=== PATIENT | male | born 1960 | race Caucasian/White ===

== ENCOUNTER → 2018-03-17 09:03 | Outpatient (CLI) | payer OTHER, SELFPAY ==
[2018-03-17 10:15] LABS: Absolute Lymphocyte Count 2.14 X10^3/ul (0.83-4.51); Absolute Neutrophil Count 4.3 X10^3/uL (2.0-7.7); Basophil# 0.04 X10^3/uL; Basophil% 0.6 % (0-1); Eosinophil# 0.34 X10^3/uL; Eosinophils% 4.7 % (0-5); Hematocrit 43.2 % (40-54); Hemoglobin 14.2 g/dl (13.0-16.5); Lymphocyte # 2.14 X10^3/ul (4.0); Lymphocyte % 29.8 % (19-41); Mean Corp Hgb Conc 32.9 g/gl (32-36); Mean Corpuscular Hgb 28.3 pg (27.0-32.0); Mean Corpuscular Volume 86.1 fL (80-94); Mean Platelet Vol. 11.2 fl (6.2-12.0); Monocyte# 0.36 X10^3/uL; Neutrophil % 59.8 % (47-70); Platelet Count 164 K/mm3 (150-450); RBC Distribution Width CV 12.9 % (11.6-14.6); RBC Distribution Width SD 40.7 fl (35.1-43.9); Red Blood Count 5.02 M/mm3 (4.6-6.2); White Blood Count 7.2 K/mm3 (4.4-11.0)
[2018-03-17 10:22] LABS: POSITIVE COUNT NO; POSITIVE DIFFERENTIAL NO; POSITIVE MORPHOLOGY NO
[2018-03-17 10:45] LABS: ALB/GLOB Ratio 0.9 RATIO (0.9-2.4); AST(SGOT) 26 U/L (15-37); Alanine Aminotransfer ALT/SGPT 39 U/L (16-61); Albumin, Serum 3.6 g/dL (3.2-5.0); Alkaline Phosphatase 56 U/L (45-117); Anion Gap 12 (5-15); BUN 14 mg/dL (7-18); BUN/Creat Ratio 15.7 RATIO (10-20); Calcium,Total 8.4 mg/dL (8.5-10.1); Chloride 106 mmol/L (98-107); Cholesterol 153 mg/dL (200); Creatinine, Serum 0.89 mg/dL (0.70-1.30); EST Glomerular Filtration Rate 92 mL/min (>60); Est Glom Filt Rate - Afr Amer 112 mL/min (>60); Globulin 3.8 g/dL (2.2-4.2); Glucose 169 mg/dL (74-106); High Density Lipoprotein 36 mg/dL; Potassium 3.6 mmol/L (3.5-5.1); Protein, Total 7.4 g/dL (6.4-8.2); Sodium Level 143 mmol/L (136-145); Triglycerides 202 mg/dL; Very Low Density Lipoprotein 40 mg/dL (5-40)
== END ==
PROVIDERS: Family Provider Family Medicine; PCP Family Medicine; Visit Provider Family Medicine
DX: I10 Essential (primary) hypertension (principal); E11.9 Type 2 diabetes mellitus without complications; R53.83 Other fatigue
CPT/HCPCS: 36415; 80053; 80061; 85025

== ENCOUNTER → 2018-10-05 16:56 | Outpatient (CLI) | payer OTHER, SELFPAY ==
[2018-03-10 17:13] VITALS: BMI 32.1
--- NOTE | 2018-10-05 16:58 | RAD_ITS ---
STUDY: X-RAY - CERVICAL SPINE REASON FOR EXAM: Male, 58 years old. Neck pain TECHNIQUE: view(s) of the cervical spine were obtained. COMPARISON: None FINDINGS: There is a normal lordotic curvature of the cervical spine with no acute fractures or dislocations bowel with degenerative changes at C4-C5, C5-C6 and C6-C7. These aren't demonstrated by small spurs from the vertebral body endplates and disc space narrowing. The prevertebral soft tissues are normal. Mild encroachment on the intervertebral foramina of C4-C5, C5-C6 on the right side are noted. RAD/Cerv Spine 4 or 5 Views IMPRESSION: Disc disease at C4-C5, C5-C6 and C6-C7 with uncinate spurs encroaching on the right intervertebral foramen at C4-5 and C5-6. No fracture Electronically Signed: Valentin Mora MD at 6:51 EST Tel , Service support ,
--- OUTSIDE RECORDS SUMMARY | 2019-01-07 09:36 | XMS RPT_ITS ---
:1960 Author Organization OHIP Care Team Providers Name Role Phone Malys, Ramona Attending Unavailable Malys, Ramona Referring Unavailable Malys, Ramona Primary Care Unavailable Malys, Ramona Attending Unavailable Malys, Ramona Referring Unavailable Malys, Ramona Primary Care Unavailable Malys, Ramona Attending Unavailable Malys, Ramona Primary Care Unavailable Malys, Ramona Referring Unavailable Denia Hurd FLIGHT DIRECTOR-C Attending Unavailable Malys, Ramona Referring Unavailable Malys, Ramona Primary Care Unavailable Denia Hurd FLIGHT DIRECTOR-C Attending Unavailable Malys, Ramona Referring Unavailable PROBLEMS PROBLEMS DATE TYPE CONDITION / CODE ATTENDING STATUS SOURCE 03/17/2018 Unknown E11.9 - Type 2 Ramona Kimbrough Active [facility] diabetes mellitus Community without Hospital complications / Repository E11.9(ICD-10) 03/17/2018 Unknown I10 - Essential Ramona Kimbrouhg Active [facility] (primary) Community hypertension / Hospital I10(ICD-10) Repository 03/17/2018 Unknown R53.83 - Other MalRamona hammonds Active [facility] fatigue / Community R53.83(ICD-10) Hospital Repository PROCEDURES PROCEDURES No Procedure Records FoundRESULTS RESULTS SPINE CERVICAL Observed: 11/03/2018 Status: F Source: [place] (ROUTINE) 10:10 AM [facility] REPOSITORY [facility] Imaging Services [address] [place] [address] Spine Cervical (Routine) MR#: [id number] Acct: [id number] Name: HILARY BUTT Rep #: [id number] : 1960 M 58 From: Donis Spencer MD PCP: Ramona Kimbrough DO Status: REG CLI Study: Spine Cervical (Routine) Date of Exam: 11/03/18 Exam# [id number] Ordering Dr: Ramona Kimbrough DO STUDY: MRI CERVICAL SPINE WITHOUT CONTRAST REASON FOR EXAM: Male, 58 years old. Radiculopathy, right arm numbness and neck pain TECHNIQUE: Standardized fat and water weighted pulse sequences were obtained in the sagittal and axial planes. COMPARISON: Radiographs 10/05/2018 FINDINGS: Normal foramen magnum and brainstem-cervical cord junction. Normal craniovertebral junction. Normal anterior atlantoaxial articulation. Normal odontoid process. Normal cervical lordosis. Normal vertebral bodies and posterior osseous elements. C2-3: Disc osteophyte complex with mild central canal stenosis. C3-4: Disc osteophyte complex with moderate central canal and severe left foraminal stenoses. C4-5: Disc osteophyte complex with severe central canal stenosis, mild cord compression, and severe bilateral foraminal stenoses. C5-6: Disc osteophyte complex with severe central canal stenosis, moderate cord compression, and severe right foraminal stenosis. C6-7: Disc osteophyte complex with moderate central canal stenosis and severe left and moderate right foraminal stenoses. C7-T1: Normal endplates. Normal disc height, signal and morphology. Normal central canal and intervertebral neural foramina. No intrinsic cord signal abnormalities are seen at this time. Normal visualized soft tissue structures. MRI/Spine Cervical (Routine) IMPRESSION: Multilevel degenerative disease as described. Severe central canal stenoses with cord compression at the C4-5 and C5-6 levels. No intrinsic cord signal abnormalities are seen at this time. Severe foraminal stenoses are present on the left at C3-4, bilaterally at C4-5, on the right at C5-6, and on the left at C6-7. Electronically Signed: Donis Spencer MD at 11:29 EST Tel , Service support , CC: Ramona Kimbrough DO Enrollment Management Coordinator: Signed CERV SPINE 4 OR 5 Observed: 10/05/2018 Status: F Source: [place] VIEWS 4:58 PM [facility] REPOSITORY [facility] Imaging Services [address] [place] [address] Cerv Spine 4 or 5 Views MR#: [id number] Acct: [id number] Name: HILARY BUTT Rep #: [id number] : 1960 58 From: Valentin Mora MD PCP: Ramona Kimbrough DO Status: REG CLI Study: Cerv Spine 4 or 5 Views Date of Exam: 10/05/18 Exam# [id number] Ordering Dr: Ramona Kimbrough DO STUDY: X-RAY - CERVICAL SPINE REASON FOR EXAM: Male, 58 years old. Neck pain TECHNIQUE: view(s) of the cervical spine were obtained. COMPARISON: None FINDINGS: There is a normal lordotic curvature of the cervical spine with no acute fractures or dislocations bowel with degenerative changes at C4-C5, C5-C6 and C6-C7. These aren't demonstrated by small spurs from the vertebral body endplates and disc space narrowing. The prevertebral soft tissues are normal. Mild encroachment on the intervertebral foramina of C4-C5, C5-C6 on the right side are noted. RAD/Cerv Spine 4 or 5 Views IMPRESSION: Disc disease at C4-C5, C5-C6 and C6-C7 with uncinate spurs encroaching on the right intervertebral foramen at C4-5 and C5-6. No fracture Electronically Signed: Valentin Mora MD at 6:51 EST Tel , Service support , CC: Ramona Kimbrough DO Enrollment Management Coordinator: Signed ENDOCRINOLOGY VISIT Observed: 04/25/2018 Status: F Source: [place] REPORT 2:16 PM [facility] REPOSITORY [facility] [address] [place] [address]. [address] [place] [address] OFFICE VISIT Date of Service: 03/10/18 MR#: [id number] Acct: [id number] Name: HILARY BUTT Rep #: [id number] : 1960 Provider: Denia Hurd NP Age/Sex: 57/M [place] [facility] [place] Status: Signed HPI History of present illness Hilary Butt is a 57 year old male who presents for consult of diabetes type 2. Diagnosed in 2000. He is currently on levemir 56 units in am and 52 units in pm. Also uses victoza 1,8 daily and is on metformin. His A1c is 180 not controlled. He reports he watches diet and is checking BG readings. Pt denies difficulty with injections or self monitoring of BG. Denies any signs of infection or irritation at site of injections. Reports taking insulin as directed At time of visit: -Pt denies symptoms of hypertensive emergency (CP,SOB,HAMEED, or blurred vision) and hypotension(dizziness or lightheadedness) -Pt denies symptoms of hypoglycemia ( sweaty, confusion, anxiety, tremor, hunger, palpitations) and hyperglycemia ( polydipsia, polyuria) -Pt denies potential medication adverse effect. Hypoglycemia Aware of hypoglycemia: When awake Able to self treat low BG: Yes Frequent low Blood sugar: No Has supply of glucagon: no Diet 3 meals Eats healthy No carb counting Reads labels for sugar Exercise No routine exercise SMBG 6+ times daily am 170 range Lunch 114-140 before dinner 180 Weight and fatigue symptoms: Denies snoring Cardiopulmonary symptoms: Denies chest pain at rest, dyspnea on exertion, lightheadedness or myalgias GI symptoms: Denies constipation, diarrhea, nausea/dyspepsia or vomiting Skin and extremity symptoms: Denies erectile dysfunction Other symptoms: Denies blurry vision or change in vision Exam Const General: comfortable, well groomed Nutritional Appearance: well nourished Orientation: oriented x3 HENVA Head: normal to inspection, atraumatic Mouth: oral mucosae normal, moist mucous membranes Eyes General: appearance normal, both eyes and all related structures Eyelids: eyelids normal Conjunctivae: conjunctivae normal Sclera: sclerae normal Pupils: PERRL Neck Neck: normal visual inspection Neck mass: No Resp Effort AND Inspection: normal respiratory effort, able to speak in complete sentences, symmetric chest movement Auscultation: Bilateral: Clear to Auscultation Cardio Rate: regular rate Rhythm: regular rhythm Heart Sounds: S1 normal, S2 normal, no murmurs, no rubs GI Inspection: normal to inspection Auscultation: normal bowel sounds Palpation: soft, no guarding Skin General: no rashes or lesions noted Wounds: no wounds Diabetic Foot Pulses: L dorsalis pedis pulse: normal Monofilament test: Left foot: abnormal, Right foot: abnormal Neuro General: oriented x3 Gait: normal gait Extrem General: normal capillary refill, no edema Psych Appearance: well kempt Mental Status: mental status grossly normal Mood: congruent mood Affect: normal affect Speech and Movement: speech and movement normal Attitude: cooperative Thought Process: normal Thought Content: normal Judgment: judgment good Intake Vital Signs03/10/18 Height 5 ft 11 in 03/10/18 Weight: 230 lb 6 oz 03/10/18 Body Mass Index (BMI) 32.1 03/10/18 Blood Pressure 142/76 03/10/18 Blood Pressure Location Lt popliteal 03/10/18 Blood Pressure Position Sitting Intake Visit Reasons: CONSULT , 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 Accompanied by: Self Is patient in pain?: No Allergies No Known Allergies Allergy (Unverified 03/10/18 16:50) Medications amlodipine 10 mg tablet 10 mg PO QDAY 03/10/18 [History Confirmed 03/10/18] ascorbic acid (vitamin C) 1,000 mg tablet 1 g PO Q6H 03/10/18 [History Confirmed 03/10/18] aspirin 81 mg chewable tablet 2 tab PO QDAY tab 03/10/18 [History Confirmed 03/10/18] cholecalciferol (vitamin D3) 1,000 unit capsule 1,000 unit PO QDAY 03/10/18 [History Confirmed 03/10/18] cranberry extract 500 mg capsule 500 mg PO QDAY cap 03/10/18 [History Confirmed 03/10/18] eszopiclone 3 mg tablet 3 mg PO QHS 03/10/18 [History Confirmed 03/10/18] folic acid 800 mcg tablet 0.8 mg PO QDAY 03/10/18 [History Confirmed 03/10/18] gabapentin 100 mg capsule 300 mg PO QHS cap 03/10/18 [History Confirmed 03/10/18] insulin detemir (U-100) 100 unit/mL (3 mL) subcutaneous pen See Label Instructions SC BID 03/10/18 [History Confirmed 03/10/18] liraglutide 0.6 mg/0.1 mL (18 mg/3 mL) subcutaneous pen injector 1.8 mg SC .q hs ml 03/10/18 [History Confirmed 03/10/18] mecobalamin (vitamin B12) 1,000 mcg disintegrating tablet,sublingual 1,000 mcg SUBLINGUAL QDAY 03/10/18 [History Confirmed 03/10/18] metformin ER 750 mg tablet,extended release 24 hr 750 mg PO BID 03/10/18 [History Confirmed 03/10/18] fhoyetvw-huo-udmxy acid 300 mcg-lycopene 600 mcg-lutein 300 mcg tablet 1 tab PO QDAY 03/10/18 [History Confirmed 03/10/18] nebivolol 20 mg tablet 20 mg PO QDAY 03/10/18 [History Confirmed 03/10/18] omega-3 fatty acids 1,000 mg capsule 1,000 mg PO QDAY 03/10/18 [History Confirmed 03/10/18] omeprazole magnesium 20 mg tablet,delayed release 20 mg PO QDAY 03/10/18 [History Confirmed 03/10/18] potassium 99 mg tablet 99 mg PO QDAY 03/10/18 [History Confirmed 03/10/18] pravastatin 40 mg tablet 40 mg PO QDAY 03/10/18 [History Confirmed 03/10/18] tumeric PO 03/10/18 [History Confirmed 03/10/18] valsartan 320 mg-hydrochlorothiazide 25 mg tablet 1 tab PO QDAY 03/10/18 [History Confirmed 03/10/18] flash glucose sensor kit See Dose Instructions .ROUTE .MEDSUPPLY #3 ea 03/12/18 [Rx Confirmed 03/12/18] Nurse's Note: blood sugars : low : 152 high : 486 PFSH Medical History Cataracts, bilateral (Acute) GERD (gastroesophageal reflux disease) (Acute) Hearing problem (Acute) High cholesterol (Acute) Stomach ulcer (Acute) Type 2 diabetes mellitus (Acute) HTN (hypertension) (Chronic) Family History Unknown Arthritis Breast cancer Cancer Diabetes Heart disease Hypertension Social History Smoking Status: Former smoker substance use type: does not use ROS Const Constitutional: Positive for fatigue; no anorexia, body ache, chills, fever(s), frequent falls, decreased energy, malaise, night sweats, weakness, weight change, sleep problems, abnormal sleep pattern, change in appetite, other, headache(s), snoring or excessive sweating Eyes Eyes: Positive for other (eye exam 05/05); no blurry vision, change in vision, double vision, discharge, dry eyes, bulging eyes, floaters, visual disturbances, eye pain, light sensitivity, spots in vision or tunnel vision ENT ENT: No abnormal hearing, ear pain, ear discharge, ear pressure, hearing loss, tinnitus, dizziness/vertigo, balance problems, nosebleed/epistaxis, nasal congestion, nasal obstruction, nose pain, sinus pressure, sinus pain, nasal discharge, post nasal drip, headache(s), facial pain, dental pain, dry mouth, bad breath, hoarseness, lip swelling, mouth lesions, mouth pain, sore throat, tongue swelling, throat swelling, other, difficulty swallowing or neck pain Resp Respiratory: No cough, change in phlegm color, chest congestion, excessive phlegm production, hemoptysis, pain on inspiration, shortness of breath, pain with cough, snoring, stridor, wheezing or other Cardio Cardiology: No chest pain at rest, chest pain with exertion, leg pain with exertion, excessive sweating, shortness of breath, dyspnea on exertion, generalized swelling, irregular heart rhythm, lightheadedness, orthopnea, radiating jaw, neck or arm pain, fast heart rate, slow heart rate, palpitations or other Gastro GI: No abdominal pain, belching, bloating, change in bowel habits, change in stool character, coffee ground emesis, constipation, cramping, diarrhea, heartburn, difficulty swallowing, feeling full early, excessive flatus, incontinent of stools, Vomiting blood/hematemesis, blood in stool, loose stools, Black,tarry stools, nausea/dyspepsia, pain with swallowing, vomiting or other Genitourinary Male: Positive for urinary hesitancy; no difficulty urinating, burning urination, painful urination, urinary incontinence, urinary frequency, urinary urgency, urinary retention, blood in urine, Frequent nighttime urination/ nocturia, post void dribbling, suprapubic fullness, side pain, sexual problems, genital lesions, genital itching, erectile dysfunction, penile discharge, difficulty with ejaculations, blood in semen, scrotal swelling, testicle lump, testicle pain or other Musc Musculoskeletal: Positive for muscle cramps and tingling; no abnormal walking, joint pain, back pain, deformity, joint swelling, limited range of motion, loss of height, muscle weakness, decreased muscle mass, body aches, neck pain, numbness, radiating pain into limb, stiffness or other Skin Skin: No acne, hair loss, change in hair, nail changes, boil, change in skin color, dry skin, redness, excessive hair growth, yellowing of the skin, lesions, itching, rash, skin pain, skin ulcer, sores, skin swelling, wounds or other Breast Breast: No other Neuro Neurology: Positive for tingling; no frequent falls, weakness, visual disturbances, abnormal hearing, headache(s), abnormal walking or numbness Psych Psychiatric: No abnormal sleep pattern, No change in appetite Endo Endocrine: Positive for fatigue; no other or excessive sweating Aller/Imm Allergy/Immunologic: No lip swelling, tongue swelling, throat swelling, wheezing or itchy eyes Assessment AND Plan Problems 1. Essential hypertension with goal blood pressure less than 130/80 I10 2. Hyperlipidemia associated with type 2 diabetes mellitus E11.69; E78.5 3. Uncontrolled type 2 diabetes mellitus with hyperglycemia, unspecified whether halfway insulin use E11 Plan RTC with BG before and after meal. Will begin to adjust medications. Up date labs Eye exams each year Routine exercise. Orders Orders: Medications New: flash glucose sensor kit (FreeStyle Lashaun use to moniter BG through out the day. apE11.9 Sensor kit) ply to back of arms. change q 10 days e11 .9 Plan Detail Additional Comments 1. Please schedule follow up in 3 weeks 2. Lab work one week before appointment. 3. Discussed importance of regular exercise and recommend starting or continuing a regular exercise program for good health. 4. The patient was encouraged to lose weight for good health 5. The importance of monitoring blood sugar regularly was reviewed. 6. The importance of monitoring the HBA1c level regularly was reviewed. 7. The importance of prper foot care and regularly checking feet to prevent sores and loss of limbs was reviewed. 8. The importance of keeping BP at or below 130/80 to prevent stroke, heart attacks, kidney failure, blindness was reviewed. Spent approximately 60 minutes with patient with over 50% of time spent in discussion and counseling regarding medication adjustment, symptoms and treatment of hypoglycemia, diet adherence, and checking BG before driving. Coding Level of Care Code Off vis,new,level 4 Diagnoses Essential hypertension with goal blood pressure less than 130/80 I10 Hyperlipidemia associated with type 2 diabetes mellitus E11.69; E78.5 Uncontrolled type 2 diabetes mellitus with hyperglycemia, unspecified whether manager long term care insulin use E11 Diabetes mellitus halfway insulin use: unspecified halfway insulin use status Diabetes mellitus complication status: with hyperglycemia Time Spent (min) 60 Depression Screen PHQ-2/9 PHQ-2 Over the last 2 weeks, how often have you been bothered by any of the following problems? 1. Little interest or pleasure in doing things: not at all 2. Feeling down, depressed, or hopeless: not at all Total score: 0 If score is 2 or greater, continue 3. Trouble falling or staying asleep, or sleeping too much: nearly every day 4. Feeling tired or having little energy: not at all 5. Poor appetite or overeating: not at all 6. Feeling bad about yourself - or that you are a failure or have let yourself and your family down: not at all 7. Trouble concentrating on things, such as reading the newspaper or watching television: not at all 8. Moving or speaking so slowly that other people could have noticed? - Or the opposite - being so fidgety or restless that you have been moving around a lot more than usual: not at all 9. Thoughts that you would be better off or of hurting yourself in some way: not at all Total score: 3 If you checked off any problems, how difficult have these problems made it for you to do your work, take care of things at home, or get along with other people?: not difficult at all Source: Developed by Drs. Joe Pabon, Christine Cruz, Campos Foss and colleagues, with an educational sean from [employer]. Scoring: Total Score Depression Severity Action 1-4 Minimal depression No action needed 5-9 Mild depression Repeat PHQ-9 at follow up 10-14 Moderate depression Make tx plan,consider counseling, fup, prescription 04/25/18 1416 <Electronically signed by Denia ACOSTA> Date Denia ACOSTA Cosigner Signature: Date (if applicable) CC: CBC W/DIFF, AUTOMATED Collected: 03/17/2018 Status: F Source: [place] 9:07 AM [facility] REPOSITORY TYPE CODE TESTS RESULT OUT OF RANGE REFERENCE UNITS LAB L100.1000 4.4-11.0 K/mm3 Normal WBC 7.2 LAB L100.1200 4.6-6.2 M/mm3 Normal RBC 5.02 LAB L100.1300 13.0-16.5 g/dl Normal HGB 14.2 LAB L100.1400 40-54 % Normal HCT 43.2 LAB L100.1500 80-94 fL Normal MCV 86.1 LAB L100.1600 27.0-32.0 pg Normal MCH 28.3 LAB L100.1700 32-36 g/gl Normal MCHC 32.9 LAB L100.1810 11.6-14.6 % Normal RDW CV 12.9 LAB L100.1820 35.1-43.9 fl Normal RDW SD 40.7 LAB L100.1900 150-450 K/mm3 Normal PLT 164 LAB L100.2000 6.2-12.0 fl Normal MPV 11.2 LAB L100.2100 47-70 % Normal NEUT% 59.8 LAB L100.2200 19-41 % Normal LY% 29.8 LAB L100.2300 0-10 % Normal MONO% 5.0 LAB L100.2400 0-5 % Normal EO% 4.7 LAB L100.2500 0-1 % Normal BASO% 0.6 LAB L100.2550 0.0-0.9 % Normal IM GRAN % 0.100 Result Comment: IG% - Immature Granulocytes (promyelocytes, myelocytes and metamyelocytes) > 1% indicates that a LEFT SHIFT is Present. LAB L100.2620 2.0-7.7 X10 3/uL Normal Absolute Neut 4.3 LAB L100.2720 0.83-4.51 X10 3/ul Normal Absolute Lymph 2.14 Performed By: #### L100.0100 #### [facility] [address] [place], [place], [id number] COMPREHENSIVE METABOLIC Collected: 03/17/2018 Status: F Source: [facility] 9:07 AM [facility] REPOSITORY TYPE CODE TESTS RESULT OUT OF RANGE REFERENCE UNITS LAB L501.0100 74-106 mg/dL High GLU 169 Result Comment: Fasting Glucose result greater than or equal to 126 mg/dL suggests DIABETES MELLITUS per A.D.A. criteria. Please note revised GLUCOSE reference range effective 2017. LAB L501.1000 7-18 mg/dL Normal BUN 14 LAB L501.1100 0.70-1.30 mg/dL Normal CREAT,SERUM 0.89 Result Comment: The validity of the calculated GFR AND GFRAA in patients over 70 years has not been determined. Clinical correlation is essential. LAB L501.1110 >60 mL/min Normal EST GFR 92 Result Comment: Non- GFR Calc LAB L501.1115 >60 mL/min Normal EST GFR - AA 112 Result Comment: GFR Calc LAB L501.1300 10-20 RATIO Normal BUN/CRE 15.7 LAB L501.1500 6.4-8.2 g/dL T Normal PROT 7.4 LAB L501.1800 3.2-5.0 g/dL Normal ALB 3.6 LAB L501.1950 2.2-4.2 g/dL Normal GLOB 3.8 LAB L501.2000 0.9-2.4 RATIO Normal A/G 0.9 LAB L501.2200 8.5-10.1 mg/dL Low CA 8.4 LAB L501.4100 15-37 U/L Normal AST 26 LAB L501.4305 45-117 U/L Normal ALK P 56 LAB L501.4405 16-61 U/L Normal ALT 39 LAB L501.4600 0.20-1.00 mg/dL T Normal BILI 0.50 LAB L501.5300 136-145 mmol/L NA Normal 143 LAB L501.5600 3.5-5.1 mmol/L K Normal 3.6 LAB L501.5900 98-107 mmol/L CL Normal 106 LAB L501.6100 21.0-32.0 mmol/L Normal CO2 25.0 LAB L501.6200 5-15 Normal GAP 12 Performed By: #### L500.4050, L500.4100 #### [facility] [address] [place], [place], [address] LIPID PROFILE Collected: 03/17/2018 Status: F Source: [place] 9:07 AM [facility] REPOSITORY TYPE CODE TESTS RESULT OUT OF RANGE REFERENCE UNITS LAB L501.4900 200 mg/dL Normal CHOL 153 Result Comment: <200 mg/dL Desirable 200-240 mg/dL Borderline >240 mg/dL High Risk LAB L501.5000 mg/dL High TRIG 202 Result Comment: The drugs N-Acetylcysteine and Metamizole may falsely depress this assay. Serum Triglycerides Reference Interval Normal <150 mg/dL Borderline high 150 - 199 mg/dL High 200 - 499 mg/dL Very High > or = 500 mg/dL LAB L501.6400 mg/dL Low HDL 36 Result Comment: The drugs N-Acetylcysteine and Metamizole may falsely depress this assay. Reference Range HDL <40 mg/dL Low HDL Cholesterol HDL >or= 60 mg/dL High HDL Cholesterol LAB L501.6500 0-130 mg/dL Normal LDL 77 LAB L501.6600 5-40 mg/dL Normal VLDL 40 Performed By: #### L500.4050, L500.4100 #### [facility] [address] [place], [address] ALLERGIES ALLERGIES DATE TYPE / CODE NAME / CODE REACTION SEVERITY SOURCE 03/10/2018 Drug No Known Unknown [facility] Allergy/4160 Allergies/F00 Hospital 65156(SNOMED [id number](RXNOR Repository CT) M) ENCOUNTERS ENCOUNTERS ADMIT/DISCHARGE ACCOUNT ADMITTING ENCOUNTER LOCATION SOURCE NUMBER CLASS 11/03/2018 [id number] [facility] ing:MRI Repository 10/05/2018 [id number] Ambulatory [facility] 7 [facility] ing:MTRAD Repository 04/08/2018 [id number] Ambulatory [facility]:B [place] [facility] Repository 03/17/2018 [id number] Ambulatory [facility] 3 [facility] ing:LAB.FUTUR Repository E 03/10/2018/ [id number] Ambulatory BMSBuilding:B [facility] 8 5 [facility] Repository PAYERS PAYERS ENCOUNTER GUARANTOR PAYER SUBSCRIBER SOURCE 11/03/2018 HILARY Moser Primary CARIDAD E [place] [id number] Insurance:AETNAPolicy FACEMIREDOB: [facility] [place]: [id number] [id number] Repository [address]Ooj: 330) Date:[phone] ( [id number] CASH GARNETT [id number]: 11/03/2018 Secondary HILARY Monterroso Insurance:[facility] PACKAGE FACEMIREDOB: [facility] Number: [id number] Hospital [id number] Repository Date:2018-10-27 11/03/2018 Tertiary NOT GIVENUNK [place] Insurance:SELF PAY [facility] Number: Effective Repository Date:2018-10-27 10/05/2018 HILARY Moser Primary CARIDAD E [place] [id number] Insurance:AETNAPolicy FACEMIREDOB: [facility] Number: [id number] [id number] Repository [address]Ugm: (330) Date:[id number] [phone] (HP) [id number] CASH GARNETT [id number]: 10/05/2018 Secondary NOT GIVENUNK [place] Insurance:SELF PAY [facility] Number: Effective Repository Date:2018-10-05 04/08/2018 HILARY Moser Primary Caridad [place] [id number] Insurance:AETNAPolicy FacemireDOB: [facility] Number: [id number] [id number] Repository [address]Jgj: (330) Date:0050-47-00RS [phone] (HP) [id number] CASH GARNETT [phone]: 04/08/2018 Secondary NOT GIVENUNK [place] Insurance:SELF PAY [facility] Number: Effective Repository Date:2018-02-23 03/17/2018 HILARY Moser Primary Caridad Quincy [id number] Insurance:AETNAPolicy FacemireDOB: [facility] [place]: [id number] Repository [address]Avz: [phone]) Date:[id number] [phone] (HP) [id number] CASH GARNETT [id number]: 03/17/2018 Secondary NOT GIVENUNK Kriss Insurance:SELF PAY [facility] Number: Effective Repository Date:2017-11-07 03/10/2018 HILARY F Primary Caridad Kriss [id number] Insurance:AETNAPolicy FacemireDOB: [facility] Number: [id number] Repository [address]Fsp: [phone]) Date:[id number] [phone] () [id number] CASH GARNETT [id number]: 03/10/2018 Secondary NOT GIVENUNK Kriss Insurance:SELF PAY [facility] Number: Effective Repository Date:2018-03-10
== END ==
PROVIDERS: Family Provider Family Medicine; PCP Family Medicine; Referring Provider Family Medicine; Visit Provider Family Medicine
DX: M54.2 Cervicalgia (principal)
CPT/HCPCS: 72050

== ENCOUNTER → 2018-11-03 09:56 | Outpatient (CLI) | payer OTHER, SELFPAY ==
--- NOTE | 2018-11-03 10:09 | MRI_ITS ---
STUDY: MRI CERVICAL SPINE WITHOUT CONTRAST REASON FOR EXAM: Male, 58 years old. Radiculopathy, right arm numbness and neck pain TECHNIQUE: Standardized fat and water weighted pulse sequences were obtained in the sagittal and axial planes. COMPARISON: Radiographs 10/05/2018 FINDINGS: Normal foramen magnum and brainstem-cervical cord junction. Normal craniovertebral junction. Normal anterior atlantoaxial articulation. Normal odontoid process. Normal cervical lordosis. Normal vertebral bodies and posterior osseous elements. C2-3: Disc osteophyte complex with mild central canal stenosis. C3-4: Disc osteophyte complex with moderate central canal and severe left foraminal stenoses. C4-5: Disc osteophyte complex with severe central canal stenosis, mild cord compression, and severe bilateral foraminal stenoses. C5-6: Disc osteophyte complex with severe central canal stenosis, moderate cord compression, and severe right foraminal stenosis. C6-7: Disc osteophyte complex with moderate central canal stenosis and severe left and moderate right foraminal stenoses. C7-T1: Normal endplates. Normal disc height, signal and morphology. Normal central canal and intervertebral neural foramina. No intrinsic cord signal abnormalities are seen at this time. Normal visualized soft tissue structures. MRI/Spine Cervical (Routine) IMPRESSION: Multilevel degenerative disease as described. Severe central canal stenoses with cord compression at the C4-5 and C5-6 levels. No intrinsic cord signal abnormalities are seen at this time. Severe foraminal stenoses are present on the left at C3-4, bilaterally at C4-5, on the right at C5-6, and on the left at C6-7. Electronically Signed: Donis Spencer MD at 11:29 EST Tel , Service support ,
== END ==
PROVIDERS: Family Provider Family Medicine; PCP Family Medicine; Referring Provider Family Medicine; Visit Provider Family Medicine
DX: M54.12 Radiculopathy, cervical region (principal); M79.601 Pain in right arm
CPT/HCPCS: 72141

== ENCOUNTER → 2018-12-16 12:57 | Outpatient (CLI) | payer OTHER, SELFPAY ==
[2018-03-10 17:13] VITALS: BMI 32.1
--- NOTE | 2018-12-16 14:38 | NEURO_ITS ---
NCS and/or EMG Patient Report Ordering Doctor: Ramona Kimbrough DATE OF SERVICE: 12/16/18 Hilary Butt is a 58-year-old male who presents for elective diagnostic testing of the right upper and right lower limb. He reports neck pain with radiation into the right arm. He reports intermittent right leg pain. He reports numbness and tingling in the right hand. Electrodiagnostic findings: Right median motor nerve demonstrates prolonged distal latency with normal amplitude and reduced conduction velocity. The right ulnar motor nerve demonstrates normal distal latency and amplitude with an almost 30% drop in conduction across the elbow. Normal right peroneal and right tibial motor responses. Prolonged right peroneal F-wave. H reflex is borderline prolonged bilaterally. Right median sensory latency at the wrist is delayed. Normal right ulnar and radial sensory responses. Normal sensory responses in the right lower limb. Needle EMG testing reveals 1+ fibrillations in the right deltoid, biceps and mid cervical paraspinals. Motor unit action potentials were of normal amplitude and duration. Electrodiagnostic impression: This is an abnormal study. 1. Electrodiagnostic findings demonstrate an acute right C5 radiculopathy. 2. Electrodiagnostic findings demonstrate right-sided median mononeuropathy. T his is consistent with a moderate right carpal tunnel syndrome. 3. Electrodiagnostic findings demonstrate right-sided ulnar neuropathy, consistent with a mild to moderate right cubital tunnel syndrome If there are any further questions, please do not hesitate to contact me.
== END ==
PROVIDERS: Family Provider Family Medicine; PCP Family Medicine; Referring Provider Family Medicine; Visit Provider Family Medicine
DX: M54.12 Radiculopathy, cervical region (principal); R20.2 Paresthesia of skin
CPT/HCPCS: 95886; 95913

== ENCOUNTER → 2019-07-26 | Outpatient (CLI) | payer OTHER, SELFPAY ==
[2019-07-26 10:02] LABS: Absolute Lymphocyte Count 1.35 X10^3/uL (0.83-4.51); Basophil# 0.07 X10^3/uL; Basophil% 0.9 % (0-1); Eosinophil# 0.27 X10^3/uL; Eosinophils% 3.6 % (0-5); Hematocrit 45.2 % (40-54); Hemoglobin 14.8 g/dL (13.0-16.5); Lymphocyte # 1.35 X10^3/ul (4.0); Lymphocyte % 18.1 % (19-41); Mean Corp Hgb Conc 32.7 g/dL (32-36); Mean Corpuscular Hgb 27.7 pg (27.0-32.0); Mean Corpuscular Volume 84.6 fL (80-94); Mean Platelet Vol. 11.5 fl (6.2-12.0); Monocyte# 0.74 X10^3/uL; Monocyte% 9.9 % (0-10); NRBC Flagged by Analyzer 0 % (0-5); Neutrophil # 4.99 X10^3/uL (2.7-7.7); Neutrophil % 67.2 % (47-70); Platelet Count 182 K/mm3 (150-450); RBC Distribution Width CV 12.4 % (11.6-14.6); RBC Distribution Width SD 37.5 fl (35.1-43.9); Red Blood Count 5.34 M/mm3 (4.6-6.2); White Blood Count 7.4 K/mm3 (4.4-11.0)
[2019-07-26 10:23] LABS: Microalbumin,Random Urine 19.2 mg/L (NO RANGE EST.); Microalbumin:Creatinine Ratio 17.5 mg/g CRE (<30 mg/g CRE)
[2019-07-26 10:32] LABS: AST(SGOT) 26 U/L (15-37); Alanine Aminotransfer ALT/SGPT 41 U/L (16-61); Albumin, Serum 3.8 g/dL (3.2-5.0); Alkaline Phosphatase 54 U/L (45-117); Anion Gap 9 (5-15); BUN 8 mg/dL (7-18); BUN/Creat Ratio 9.3 RATIO (10-20); Calcium,Total 8.9 mg/dL (8.5-10.1); Chloride 105 mmol/L (98-107); Cholesterol 158 mg/dL (200); Creatinine, Serum 0.86 mg/dL (0.70-1.30); EST Glomerular Filtration Rate 97 mL/min (>60); Est Glom Filt Rate - Afr Amer 117 mL/min (>60); Globulin 3.8 g/dL (2.2-4.2); Glucose 146 mg/dL (74-106); High Density Lipoprotein 41 mg/dL; LDH 177 U/L (87-241); PSA,Total - Annual Screen 0.95 ng/mL (0.00-4.00); Potassium 3.9 mmol/L (3.5-5.1); Protein, Total 7.6 g/dL (6.4-8.2); Sodium Level 142 mmol/L (136-145); Triglycerides 132 mg/dL; Very Low Density Lipoprotein 26 mg/dL (5-40)
== END | disposition home or self-care (01) ==
LOC: MTLAB 07:04
PROVIDERS: Family Provider Family Medicine; PCP Family Medicine; Referring Provider Family Medicine; Visit Provider Family Medicine
DX: E11.65 Type 2 diabetes mellitus with hyperglycemia (principal); E78.5 Hyperlipidemia, unspecified; M25.50 Pain in unspecified joint; Z12.5 Encounter for screening for malignant neoplasm of prostate
CPT/HCPCS: 36415; 80053; 80061; 82043; 82570; 83615; 84153; 85025; G0103

== ENCOUNTER 2019-10-07 17:00 | Outpatient (RCR) | payer OTHER, SELFPAY ==
--- NOTE | 2019-09-10 16:19 | HP.PTEVAL ---
Patient's Visit Information SASHA AGUERO is a 59 year old M referred to Physical Therapy by Jack Lorenzana DO with a diagnosis of CERVICAL STENOSIS OF SPINAL CANAL. Date of Evaluation: 09/10/19 Physical Therapist: Pranav King, PT, Cert MDT, OCS - Visit Plan Frequency: 2x /Week Duration: 6 Weeks Plan: PT INTERVENTION US /ESTIM/CERVICAL POSTURAL EX'S,AT THIS PONIT TRACTION NOT A OPTION FOR TX DUE TO SYMPTOMS WORSE-PERIPHILIZED IN ARM - Subjective Findings: This 59 y/o female presents physical therapy with cervical stenosis of spinal canal. Patient has had cervical radiculopathy with pain /parathesia/tingling to thumb and index finger. Patient has foraminal stenosis severe from MRI revealed from [facility]. Patient has seen Dr Loomis for pain management with injections helped 6 weeks,but pain return. Patient seen DR Lorenzana recommeded PT . Patient also had nerve conduction test. Aggaravting factots sitting ,working on computer,standing. Aleviationg factors movements.C/O HAMEED,denies dizziness/nause/tinnutus. MEDS meloxicam/gabepetin.Patient pain affects sleeping. Patient symptoms affects ability to perform ADL'S ,job demands and ADLS'. Patient condition affecs QOL. SOCIAL: . 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 NEURO:c/o parathesia/tingling in thumb and index finger,reflexes C5-6-7 1/3,mytomes intact. PAPATION: UNREMRKABLE. CERVICAL ROM: flexion min loss pain,rotation mod ,lateral flexion min/mod loss pain,mod loss pain. MMT: grossly 4/5,deltoid /RTC. RESEARCH NURSE STRENGTH: 90 # dynamotor - Special Tests C/S Radiculapathy - Left Upper limb tension test: Negative C/S Radiculapathy - Right Upper limb tension test: Positive C/S Radiculapathy - Left Spurlings: Positive C/S Radiculapathy - Right Spurlings: Positive C/S Radiculapathy - Left Cervical distraction: Positive C/S Radiculapathy - Right Cervical distraction: Positive C/S Radiculapathy - Left Relief test: Positive C/S Radiculapathy - Right Relief test: Positive C/S Radiculapathy - Valsalva: Negative Sharp Rowan: Negative Vertebral Artery Test: Negative Alar Ligament Test: Negative - Goals Goal 1:: Independant with HEP Goal Time Frame: 4-6 Weeks Goal 2:: Decrease pain with cervical radiculoathy by 40 % or> to improve function Goal Time Frame: 4-6 Weeks Goal 3:: Patient to improve cervical ROM for function of recovery Goal Time Frame: 4-6 Weeks Goal 4:: Patient to improve cervical owestry score 5 points > to improve QOL and function. Goal Time Frame: 4-6 Weeks Goal 5:: Patient to be d/c to prophalaxis Goal Time Frame: 4-6 Weeks - Rehabilitation Potential Physical Therapy Diagnosis: This patient has severe spinal canal and foraminal stenosis causin pain right arm along with sensory pain with parathesia/tingling in hand ,cercvical ROM with pain impairs ADLS and function as well as manual cervical traction and ICTX perphilizes symptoms-worse in arm thus at this point traction to a option. Rehabilitation Potential: Fair - Anticipated Interventions Patient/Client Instruction: Educate patient on: Condition, Plan of Care For the Purpose of:: To decrease pain, To increase ROM, To improve muscle performance and motor function, To improve ability to perform ADL's, To increase tolerance to activity/condition/position, To improve ability of physical actions for home/community/work/leisure, To improve health of tissue, To decrease soft tissue restriction, To increase flexibility/ROM, To improve ability to perform tasks related to life management Therapeutic Exercise to Include: Strength training, Postural training, Flexibilty training For the Purpose of:: To decrease pain, To increase ROM, To improve muscle performance and motor function, To improve ability to perform ADL's, To increase tolerance to activity/condition/position, To improve ability of physical actions for home/community/work/leisure, To improve health of tissue, To decrease soft tissue restriction, To improve ability to perform tasks related to life management TENS: Yes IF ES: Yes Cryotherapy (ice pack, ice massage): Yes Thermo therapy (hot pack): Yes Ultrasound (thermal/non thermal): Yes For the Purpose of:: To decrease pain, To increase ROM, To improve nutrient delivery to tissue, To increase oxygenation perfusion, To improve health of tissue, To decrease soft tissue restriction Thank you for the opportunity to evaluate your patient. For Medicare and Medicare HMO plans, please review the plan of care and approve it. It will need to be FAXED BACK to us at [phone] for Medicare purposes. For Medicare only, by signing this I certify the plan of care. Please let me know if there are questions or concerns regarding this plan of care. Physician Signature: Date:
--- NOTE | 2020-01-07 07:55 | HP.PTDCSUM ---
It has been my pleasure to treat SASHA AGUERO referred by Jack Lorenzana DO, with the diagnosis of CERVICAL STENOSIS OF SPINAL CANAL for a total of 7 visit(s). Discharge Date: Please see the following information for a summary of their discharge status. Subjective: Plan to see DR Urvashi mas. pain is doing much better especially in arm. Right Neck Pain Intensity (Out of 10): 0 Right Shoulder Pain Intensity (Out of 10): 0 % Improvement: 70 Objective/Function: progresing well with decreasing pain ,responded well with modalties. CERVICAL ROM -IMPROVED TO RIGHT WITH LESS PAIN. MMT: 4/5 BUE Goal 1:: Independant with HEP Goal 2:: Decrease pain with cervical radiculoathy by 40 % or> to improve function Goal 3:: Patient to improve cervical ROM for function of recovery Goal 4:: Patient to improve cervical owestry score 5 points > to improve QOL and function. Goal 5:: Patient to be d/c to prophalaxis Plan: PT INTERVENTION US /ESTIM/CERVICAL POSTURAL EX'S,AT THIS PONIT TRACTION NOT A OPTION FOR TX DUE TO SYMPTOMS WORSE-PERIPHILIZED IN ARM If there are questions or concerns regarding this patient's physical therapy, please feel free to call me at [phone]. Thank you for the referral of this patient. Sincerely, Pranav King, PT, Cert MDT, OCS
== END 2019-10-07 19:00 | disposition home or self-care (01) ==
LOC: PT 17:00
PROVIDERS: Family Provider Family Medicine; PCP Family Medicine; Referring Provider Orthopaedic Surgery; Visit Provider Orthopaedic Surgery
DX: M48.02 Spinal stenosis, cervical region (principal)
CPT/HCPCS: 97014; 97035; 97162; G0283

== ENCOUNTER 2019-10-26 05:05 | Observation (INO) | payer OTHER, SELFPAY ==
[2019-10-26] VITALS (16 sets, daily range): BP systolic 127–193; BP diastolic 76–100; PULSE 59–95; RESP 16–23; TEMP 36.5–36.8; O2SAT 93–98; BMI 32.6; BMI 31.7
[2019-10-26 05:20] LABS: Bedside Glucose 165 mg/dL (70-110)
--- NOTE | 2019-10-26 05:26 | CT_ITS ---
STUDY: CT BRAIN WITHOUT CONTRAST REASON FOR EXAM: Male, 59 years old. LEFT SIDED FACIAL NUMBNESS, VERTIGO, DIFFICULTY WALKING X 2 DAYS, HX HTN, DIAB RADIATION DOSAGE (If Supplied By Facility): CTDIvol = ( 44.99 ) mGy, DLP = ( 812.98 ) mGycm TECHNIQUE: Transaxial CT imaging of the brain was performed without administration of intravenous contrast material. Individualized dose optimization techniques were used for this CT. COMPARISON: Brain MRI 01/25/2017 FINDINGS: Normal soft tissue structures. Normal calvarium. Left lens replacement. Normal size ventricles and extra-axial spaces for the patient''s age. There are areas of decreased attenuation within the white matter tracts of the supratentorial brain, consistent with microvascular disease changes. Normal age-related changes of the basal ganglia. Normal brainstem. Normal cerebellum. There is no intracranial hemorrhage. There are no findings of an acute ischemic infarction. Normal visualized paranasal sinuses. Left mastoid sinus disease. CT/Brain/Head without Contrast IMPRESSION: No CT evidence of acute infarct or hemorrhage. If there is clinical concern for hyperacute ischemia that is not evident by CT, MRI should be considered if possible. Electronically Signed: Donis Spencer MD at 5:54 EST Tel , Service support ,
--- NOTE | 2019-10-26 05:26 | EKG12_ITS ---
Test Reason : DYSRHYTHMIA Blood Pressure : / mmHG Vent. Rate : 062 BPM Atrial Rate : 062 BPM P-R Int : 148 ms QRS Dur : 096 ms QT Int : 430 ms P-R-T Axes : 036 011 031 degrees QTc Int : 436 ms Normal sinus rhythm Normal ECG Confirmed by ADELE BERUMEN ([id number]), editor house organ LONI HERMAN ([id number]) on 10/28/2019 11:11:38 AM Referred By: NATALIIA Confirmed By:ADELE BERUMEN
--- NOTE | 2019-10-26 05:28 | ED.DCSUM_ITS ---
History of Present Illness Chief Complaint: Neuro S/Sx Detail of Chief Complaint: dizzy/off-balance Informant: Patient Onset: Weeks - several Context: Gradual Onset Timing: Waxes and wanes Quality and Location: Left Arm Parasthesia, Left Leg Parasthesia, Expressive Aphasia, Difficulty with Ambulation Onset: gradual, more mild last couple weeks; awoke much worse this AM Current Severity: Severe Maximum Severity: Severe Worsened by: walking. tilting chin up / head back. Relieved by: remaining still Associated Symptoms: Headache, Nausea. Negative for: Vomiting, Chest Pain Narrative: As above, patient has had mild symptoms for the last couple weeks. He has been going to work. Yesterday, he remembers being a little more off balance than normal but not severe like it was this morning when he woke up about an hour prior to arrival. No new symptoms, just much worse than before. He did not have any symptoms while he was lying in bed but his alarm went off and he got out and then noticed that he was basically unable to walk because of being so off balance and dizzy/vertiginous. He states in the last couple weeks he has also noticed at times that he felt like his left side was not there. He admits that it has felt numb. He has noticed no focal weakness, but he is not sure because whenever he tries to step with his left lower extremity this morning, he feels like he is falling in that direction. - Past Medical History (1) Diabetes type 2, uncontrolled Status: Chronic Comment: Reviewed diet, carb counting, medications, BG monitoring and timing of. currently not checking in timely and consistent manner. Needs to check in pairs with carb counting and give me data to review and manage. (2) Essential hypertension with goal blood pressure less than 130/80 Status: Chronic Comment: Taking medications as directed. Educated on exercise, weight, diet and sodium use. (3) Hyperlipidemia associated with type 2 diabetes mellitus Status: Chronic Comment: Lipids at goal/ on medication and tolerating well. Past Medical History - Allergies and Home Meds Allergies/Adverse Reactions: Allergies No Known Allergies Allergy (Unverified 10/26/19 05:08) Primary Care Physician: Ramona Kimbrough DO [Primary Care Provider] - Smoking Status: Never smoker Review of Systems General: Reports: Malaise. Denies: Chills, Fever, Sweats Eyes: Denies: Visual changes - bilaterally, Diplopia ENT: Reports: - - chronic tinnitus left ear. Denies: Rhinorrhea, Sore throat Cardiovascular: Denies: Chest pain, Palpitations Respiratory: Denies: Dyspnea, Cough, Dyspnea on exertion Gastrointestinal: Reports: Nausea. Denies: Abdominal pain, Vomiting, Diarrhea, Melena, Hematochezia Genitourinary: Denies: Dysuria, Hematuria, Frequency Musculoskeletal: Denies: Back pain, Swelling, Extremity Pain Skin: Denies: Rash, Abscess, Wounds Neurological: Reports: Headache - yes, but not a headache -- points to base of head/occiput; mild, Numbness - left side, - - difficulty with speech and ambulation. see HPI.. Denies: Weakness STROKE Vital Signs/Narrative: Vital Signs Temp Pulse Resp BP Pulse Ox 10/26/19 05:16 69 20 H 180/85 H 96 10/26/19 05:05 97.9 F 67 20 H 193/78 H 94 Inital Vital Signs reviewed: Yes - NIHSS Initial 1a Level of Consciousness: 0 1b LOC Questions (Score 2 if aphasic/stupor): 0 1c LOC Commands (Only score 1st attempt): 0 2 Best Gaze (If aphasic, use reflexive mvmts.): 0 3 Visual: 0 4 Facial Palsy: 0 5 Motor Arm Right (UN = amputation/fusion): 0 5 Motor Arm Left: 0 6 Motor Leg Right: 0 6 Motor Leg Left: 0 7 Limb ataxia (Only + if out of proportion): 1 - LLE 8 Sensory (Aphasia/stupor=0 or 1, coma=2): 1 9 Best Language: 1 10 Dysarthria (mute, coma=2, intubated=UN): 0 11 Extinction and Inattention (only scored if +): 0 Total Score: 3 General: Well nourished, Well developed, - - NAD. keenly alert, conversive. Head: Normocephalic, Atraumatic Eyes: Perrl, EOMI, - - ?mild ptosis on left vs. mild dysconjugate gaze vs. MLF issue ENT: Moist mucous membranes, No rhinorrhea Neck: Supple, Nontender, No JVD, - - no carotid bruits Cardiovascular: Regular rate, Regular rhythm, Normal S1, Normal S2, Murmur - sof t systolic 1/6 Respiratory: No distress, CTA bilaterally, Chest nontender Abdomen: Soft, Nontender, Nondistended, Normal bowel sounds Back: Nontender, Normal Inspection Extremities: Nontender, No edema. Negative for: Calf Tenderness Skin: Normal color, No rash, No Trauma Neurological: Alert, Oriented x3, Cranial nerves II-XII grossly intact, Normal Strength, Parasthesia - left side Psychological: Normal affect, Normal Mood Diagnostic/Tx/Re-eval Impressions Brain CT 10/26/19 05:26 IMPRESSION: No CT evidence of acute infarct or hemorrhage. If there is clinical concern for hyperacute ischemia that is not evident by CT, MRI should be considered if possible. Electronically Signed: Donis Spencer MD at 5:54 EST Tel , Service support , 10/26/19 05:26 Brain/Head without Contrast [CT] Stat Laboratory Results 10/26/19 10/26/19 10/26/19 05:12 05:15 05:15 WBC 8.0 RBC 5.20 Hgb 14.5 Hct 43.7 MCV 84.0 MCH 27.9 MCHC 33.2 RDW Std Deviation 39.6 RDW Coeff of Karen 12.9 Plt Count 186 MPV 11.0 Immature Gran % (Auto) 0.400 Neut % (Auto) 55.7 Lymph % (Auto) 27.5 [place] % (Auto) 11.6 H Eos % (Auto) 4.0 Baso % (Auto) 0.8 Absolute Neuts (auto) 4.5 Absolute Lymphs (auto) 2.20 Nucleated RBC % 0 PT 14.2 INR 1.1 APTT 31.1 Sodium Potassium Chloride Carbon Dioxide Anion Gap BUN Creatinine Estim Creat Clear Calc Est GFR (MDRD) Af Amer Est GFR (MDRD) Non-Af BUN/Creatinine Ratio Glucose Calcium Troponin I POC Glucose 165 H 10/26/19 05:15 WBC RBC Hgb Hct MCV MCH MCHC RDW Std Deviation RDW Coeff of Karen Plt Count MPV Immature Gran % (Auto) Neut % (Auto) Lymph % (Auto) [place] % (Auto) Eos % (Auto) Baso % (Auto) Absolute Neuts (auto) Absolute Lymphs (auto) Nucleated RBC % PT INR APTT Sodium 139 Potassium 3.5 Chloride 103 Carbon Dioxide 30.0 Anion Gap 6 BUN 10 Creatinine 0.84 Estim Creat Clear Calc 98.36 Est GFR (MDRD) Af Amer 120 Est GFR (MDRD) Non-Af 99 BUN/Creatinine Ratio 12.0 Glucose 160 H Calcium 8.7 Troponin I < 0.015 POC Glucose - Rhythm Strip Rhythm Strip: Sinus Rhythm Rate: 62 Ectopy: None - EKG Initial EKG Interpretation: Sinus Rhythm, No Acute Injury Pattern - normal EKG - Medical Decision Making Stroke Team Activated: No - sx more than 24 hrs; not candidate for tPA or endovasc intervention There is concern for stroke or other TECHNICAL SUPPORT REPRESENTATIVE process here given his unilateral symptoms with speech involvement, posterior circulation symptoms/findings, and severe hypertension with systolics in the 190s. His CT is negative. He was treated with Phenergan, his vertigo and nausea are improved and his blood pressure is down to 159/80. His EKG shows a sinus rhythm and his labs are unremarkable. I think he should have further work-up and nonemergent neurologic consultation. Plan is for admission. Aspirin 325 given. ED Disposition - Plan for ED Patient: Disposition: Acute Care Hospital [facility] Diagnosis: Vertigo, central, Expressive aphasia, Left sided numbness Referrals: Ramona Kimbrough DO [Primary Care Provider] -
[2019-10-26 05:40] LABS: Absolute Neutrophil Count 4.5 X10^3/uL (2.0-7.7); Basophil# 0.06 X10^3/uL; Basophil% 0.8 % (0-1); Eosinophil# 0.32 X10^3/uL; Hematocrit 43.7 % (40-54); Hemoglobin 14.5 g/dL (13.0-16.5); Lymphocyte % 27.5 % (19-41); Mean Corp Hgb Conc 33.2 g/dL (32-36); Mean Corpuscular Hgb 27.9 pg (27.0-32.0); Monocyte# 0.93 X10^3/uL; Monocyte% 11.6 % (0-10); NRBC Flagged by Analyzer 0 % (0-5); Neutrophil # 4.46 X10^3/uL (2.7-7.7); Neutrophil % 55.7 % (47-70); Platelet Count 186 K/mm3 (150-450); RBC Distribution Width CV 12.9 % (11.6-14.6); RBC Distribution Width SD 39.6 fl (35.1-43.9)
[2019-10-26] MEDS: 0.9% Normal Saline 1,000 ML 100 ML IV ×2 (05:50→12:34)
[2019-10-26 05:58] LABS: Anion Gap 6 (5-15); BUN 10 mg/dL (7-18); Calcium,Total 8.7 mg/dL (8.5-10.1); Chloride 103 mmol/L (98-107); Creatinine, Serum 0.84 mg/dL (0.70-1.30); EST Glomerular Filtration Rate 99 mL/min (>60); Est Glom Filt Rate - Afr Amer 120 mL/min (>60); Estimated Creatinine Clearance 98.36 ml/min; Glucose 160 mg/dL (74-106); International Normalized Ratio 1.1; Potassium 3.5 mmol/L (3.5-5.1); Prothrombin Time (Protime)PT. 14.2 SECONDS (11.7-14.9); Sodium Level 139 mmol/L (136-145)
[2019-10-26 05:59] LABS: Partial Thromboplast Time 31.1 Seconds (24.1-36.2)
--- NOTE | 2019-10-26 07:10 | NURSING ---
HOSPITALIST PAGED DR LOJA CALLED BACK
[2019-10-26] MEDS: Aspirin 325 MG Tablet PO (07:24)
--- NOTE | 2019-10-26 07:49 | ECHOCS_ITS ---
Reason For Study: TIA/CVA Procedure This was a 2D Doppler, Color Flow transthoracic echocardiogram. The study was technically difficult. Contrast injection was performed. Exam performed portable in patient room. Left Ventricle Normal LV size. Moderate concentric left ventricular hypertrophy. Left ventricular systolic function is normal. The estimated ejection fraction is 65 %. Diastolic function is indeterminate. No regional wall motion abnormalities noted. Right Ventricle Normal RV size. Normal systolic function. Atria The left atrium is mildly enlarged. Normal right atrium. Faintly positive agitated saline contrast study for a right to left interatrial shunt compatible with a small PFO versus small ASD. Mitral Valve There is no mitral annular calcification. Anterior leaflet diffuse mitral valve thickening. Trivial mitral valve insufficiency. Tricuspid Valve Normal tricuspid valve. Trivial tricuspid valve insufficiency. Unable to estimate RV systolic pressure/pulmonary artery pressure due to technically difficult study. Aortic Valve Trisinus/trileaflet aortic valve. Mild diffuse aortic valve thickening. Mild focal aortic valve calcification. Mild aortic stenosis. Pulmonic Valve The pulmonic valve is not well visualized. Trivial pulmonic valve insufficiency. Great Vessels Normal sized aortic root. Pericardium/Pleural No pericardial effusion. Medication Diluted definity 3.0ml given slow IV push to enhance endocardial definition. Performed a rapid injection of agitated mix of 9 cc saline and 1cc air to assess for atrial septal defect. MMode/2D Measurements & Calculations LVIDd: 4.5 cm IVSd: 1.6 cm LVOT diam: 2.1 cm LVIDs: 2.9 cm LVPWd: 1.4 cm RVDd: 3.6 cm FS: 35.8 % LVOT area: 3.6 cm2 Ao root diam: 3.3 cm LAV(MOD-bp): 56.5 ml LVAd ap4: 38.9 cm2 LAV(MOD-bp) Indexed: 25.1 ml/m2 EDV(MOD-sp4): 136.0 ml LAV(MOD-sp2): 50.8 ml EDV(sp4-el): 142.4 ml LAV(MOD-sp4): 63.1 ml LVAs ap4: 19.1 cm2 ESV(MOD-sp4): 42.3 ml ESV(sp4-el): 43.0 ml EF(MOD-sp4): 68.9 % EF(sp4-el): 69.8 % SV(MOD-sp4): 93.7 ml SV(sp4-el): 99.4 ml LA A4 area: 21.2 cm2 LA dimension(2D): 4.6 cm RA A4 area: 11.3 cm2 Time Measurements MV dec time: 0.22 sec Doppler Measurements & Calculations MV E max lew: 76.7 cm/sec Lat Peak E' Lew: 10.6 cm/sec Med Peak E' Lew: 6.6 cm/sec MV A max lew: 90.3 cm/sec E/E' lat: 7.2 E/E' med: 11.7 MV E/A: 0.85 Ao V2 max: 202.1 cm/sec LV V1 max: 90.1 cm/sec SV(LVOT): 80.5 ml Ao max P.3 mmHg LV V1 max P.3 mmHg Ao V2 mean: 138.8 cm/sec LV V1 mean P.7 mmHg Ao mean P.7 mmHg LV V1 mean: 60.3 cm/sec Ao V2 VTI: 46.9 cm LV V1 VTI: 22.5 cm MINA(I,D): 1.7 cm2 MINA(V,D): 1.6 cm2 PA V2 max: 91.3 cm/sec Interpretation Summary The study was technically difficult. Contrast injection was performed. Left ventricular systolic function is normal. The estimated ejection fraction is 65 %. Moderate concentric left ventricular hypertrophy. The left atrium is mildly enlarged. Anterior leaflet diffuse mitral valve thickening. Trivial mitral valve insufficiency. Trivial tricuspid valve insufficiency. Mild aortic stenosis. Trivial pulmonic valve insufficiency. Unable to estimate RV systolic pressure/pulmonary artery pressure due to technically difficult study. Diastolic function is indeterminate. Faintly positive agitated saline contrast study for a right to left interatrial shunt compatible with a small PFO versus small ASD. Ordering Physician: Kris Nj Referring Physician: HANNA BEAUCHAMP Performed By: Taylor Tate, JEANNETTE, RVT
--- NOTE | 2019-10-26 07:49 | MRI_ITS ---
STUDY: MRI BRAIN WITHOUT CONTRAST REASON FOR EXAM: Male, 59 years old. Dizziness TECHNIQUE: Standardized multiplanar fat and water weighted pulse sequences were obtained. COMPARISON: 26 October 2019, 25 January 2017 FINDINGS: Brain parenchyma is intact without focal lesions, mass effect, extra parenchymal fluid collections, hydrocephalus or herniation. Major vascular flow structures are intact. Craniocervical junction is unremarkable. There are bilateral mastoid effusions. Nasopharynx is clear. Appearance is similar to prior. MRI/Brain without Contrast IMPRESSION: 1. Unremarkable brain MRI. No acute or focal findings. Electronically Signed: Uziel Alas, at 16:03 EST Tel , Service support ,
--- NOTE | 2019-10-26 07:49 | MRI_ITS ---
STUDY: MRA NECK WITH AND WITHOUT CONTRAST REASON FOR EXAM: Male, 59 years old. dizzy, off balance, facial n/t TECHNIQUE: 3-D fmzw-cu-[id number] (TOF) imaging was performed in an 1.5 T MRI scanner. IV Dotarem 19 was administered for the contrast enhanced images. COMPARISON: None. FINDINGS: RIGHT CAROTID ARTERIES: Normal right common carotid artery (CCA). Normal right common carotid bulb. Normal origin of the right internal carotid (ICA) artery without a hemodynamically significant stenosis. Normal visualized cervical portion of the right internal carotid artery. Normal origin of the right external carotid artery (ECA). LEFT CAROTID ARTERIES: Normal left common carotid artery (CCA). Normal left common carotid bulb. Normal origin of the left internal carotid (ICA) artery without a hemodynamically significant stenosis. Normal visualized cervical portion of the left internal carotid artery. Normal origin of the left external carotid artery (ECA). VERTEBRAL ARTERIES: Normal antegrade flow within the bilateral vertebral artery without a hemodynamically significant stenosis. MRI/MRA Neck WITH and W/O Contrast IMPRESSION: Normal bilateral cervical carotid and vertebral arteries. Electronically Signed: Uziel Alas, at 16:25 EST Tel , Service support ,
--- NOTE | 2019-10-26 07:49 | MRI_ITS ---
STUDY: MRA OF THE HEAD WITHOUT CONTRAST REASON FOR EXAM: Male, 59 years old. Dizziness and balance problems TECHNIQUE: 3-D zhlq-ax-iqudsu (TOF) imaging was performed with MIPs. The study was performed unenhanced. COMPARISON: None. FINDINGS: Bilateral base of skull carotids, bifurcations, anterior and middle cerebral arteries and proximal branches are patent. Posterior communicating arteries are not well seen Posterior cerebral arteries and superior cerebellar arteries and proximal branches are patent. Vertebral arteries, basilar arteries are patent. MRI/MRA Head ONLY without Contrast IMPRESSION: 1. Unremarkable afognak of [place] and proximal branches. Electronically Signed: Uziel Alas, at 16:06 EST Tel , Service support ,
[2019-10-26] MEDS: Clopidogrel Bisulfate 75 MG Tablet PO (10:53)
[2019-10-26] MEDS: Enoxaparin 40 MG/0.4 ML Syringe SC (10:53)
--- NOTE | 2019-10-26 11:45 | NURSING ---
This RN called into room by PT/OT. While attempting to sit patient to edge of bed, pt became nauseous, red, diaphoretic, lightheaded. Laid pt back in bed in which he stated he felt like he couldn't breathe. Placed on 2L N/C. BP 195/91, HR 84, SpO2 98% on 2L, BG 216.
[2019-10-26 11:51] LABS: Bedside Glucose 216 mg/dL (70-110)
--- NOTE | 2019-10-26 15:16 | PCM.HP.STD ---
History of Present Illness Date of Admission: 10/26/19 Chief Complaint: Vertigo The patient is a 59 year old M with a PMH as below who presents with 2 weeks worth of intermittent dizziness and left-sided numbness. He says that the numbness in his face and in his arm started about 2 weeks ago around [place] time when the dizziness started as well. He says that the dizziness appears to get times positional in other words whenever he gets up from laying down or gets up from seated position. Though he states that it is so extreme that sometimes he has difficulty walking, he says that today presented because is the worst it ever been and he says that it felt like he has been on a 4-day binge even though he does not drink. In the ER his work-up was unremarkable with a normal CT scan, however he did receive a score of 3 on his NIH per the ER physician. He has had work-up for previous neck issues, he has bulging disks mostly on the left and on the right and he has had nerve conduction studies on the right indicating entrapment and possible carpal tunnel syndrome. He says that he is never had any numbness or weakness on the left until he developed the numbness over the last 2 weeks. No recent illnesses, denies fevers and chills. Past Medical History Past Medical History (Chronic Problems): Chronic Problems (Last Updated 03/10/18 @ 17:22 by Do Taylor) Essential hypertension with goal blood pressure less than 130/80 (Chronic) Taking medications as directed. Educated on exercise, weight, diet and sodium use. Hyperlipidemia associated with type 2 diabetes mellitus (Chronic) Lipids at goal/ on medication and tolerating well. Diabetes type 2, uncontrolled (Chronic) Reviewed diet, carb counting, medications, BG monitoring and timing of. currently not checking in timely and consistent manner. Needs to check in pairs with carb counting and give me data to review and manage. Medical History: Medical History (Last Updated 03/10/18 @ 17:22 by Do Taylor) Cataracts, bilateral H26.9 GERD (gastroesophageal reflux disease) K21.9 Hearing problem H91.90 High cholesterol E78.00 Stomach ulcer K25.9 Type 2 diabetes mellitus E11.9 Dx : 2000 Last exacerbation : DKA : never Hypoglycemic episode : never ER visit : never HTN (hypertension) I10 Allergies No Known Allergies Allergy (Unverified 10/26/19 05:08) Home Medications: Ambulatory Orders Medication Instructions Recorded amlodipine 10 mg tablet 10 mg PO QDAY 03/10/18 ascorbic acid (vitamin C) 1,000 mg 1 g PO DAILY 03/10/18 tablet aspirin 81 mg chewable tablet 2 tab PO QHS tab 03/10/18 cholecalciferol (vitamin D3) 25 1,000 unit PO QDAY 03/10/18 mcg (1,000 unit) capsule cranberry extract 500 mg capsule 500 mg PO QDAY cap 03/10/18 gabapentin 100 mg capsule 600 mg PO QHS cap 03/10/18 liraglutide 0.6 mg/0.1 mL (18 mg/3 1.8 mg SC 1700 ml 03/10/18 mL) subcutaneous pen injector mecobalamin (vitamin B12) 1,000 1,000 mcg PO QDAY 03/10/18 mcg disintegrating tablet,sublingual metformin 750 mg tablet,extended 1,500 mg PO DAILY 03/10/18 release 24 hr nxfcwegf-xzp-clzye acid 300 1 tab PO QDAY 03/10/18 mcg-lycopene 600 mcg-lutein 300 mcg tablet nebivolol 20 mg tablet 40 mg PO QDAY 03/10/18 omega-3 fatty acids 1,000 mg 1,000 mg PO QDAY 03/10/18 capsule pravastatin 40 mg tablet 40 mg PO QHS 03/10/18 valsartan 320 1 tab PO QDAY 03/10/18 mg-hydrochlorothiazide 25 mg tablet Insulin Detemir [Levemir Flextouch] 52 unit SQ 1700 10/26/19 Insulin Detemir [Levemir Flextouch] 56 unit SQ BREAKFAST 10/26/19 Insulin Lispro [Humalog KwikPen] 8 units SQ 1700 10/26/19 Lansoprazole 30 mg PO DAILY 10/26/19 Meloxicam 15 mg PO DAILY 10/26/19 Montelukast [Singulair] 10 mg PO DAILY 10/26/19 Sucralfate 1 gm PO 4X/DAY 10/26/19 Zolpidem Tartrate [Zolpidem 12.5 mg PO QHS 10/26/19 Tartrate ER] Surgical History: tonsillectomy Smoking Status: Former smoker Tobacco Use: Cigarettes Alcohol: Occasional Drugs: None - *Family History Maternal Family History: Family History (Last Updated 03/10/18 @ 17:04 by Do Taylor) Unknown Arthritis Breast cancer Cancer Diabetes Heart disease Hypertension Review of Systems Constitutional: Denies: Chills, Fever, Weight Change HEENT: Denies: Head Aches, Sinus Congestion, Sinus Drainage Cardiovascular: Denies: Chest Pain, Palpitations Respiratory: Denies: Cough, Shortness of breath at rest, Sputum production Gastrointestinal: Denies: Abdominal Pain, Nausea, Vomiting Genitourinary: Denies: Dysuria Musculoskeletal: Denies: Joint Pain, Joint Tenderness Skin: Denies: Rash, Wounds Neurological: Reports: Numbness, - - Vertigo. Denies: Focal weakness, Tingling Psychiatric: Denies: Anxiety, Depression Hematologic/ Lymphatic: Denies: Easy Bruising, Easy Bleeding VTE Information - Inpt Only VTE Present on Admission: No Patient Problems: Active and Suspected Problems (Last Updated 03/10/18 @ 17:22 by Do Taylor) Vertigo, central (Acute) Expressive aphasia (Acute) Left sided numbness (Acute) - Physical Exam Vitals/I&O's: Vital Signs Temp Pulse Resp BP Pulse Ox 97.8 F 66 20 H 162/80 H 98 10/26/19 12:25 10/26/19 12:25 10/26/19 12:25 10/26/19 12:25 10/26/19 12:25 Oxygen Flow Rate (L/min) 2 Oxygen Delivery Method Nasal Cannula Weight: 227 lb 8.273 oz Body Mass Index (BMI) 31.7 Finger Stick Blood Glucose 165 Orthostatic Vital Signs Start: 10/26/19 12:04 Freq: q24h Status: Active Protocol: Activity Type Activity Date Activity User E-Sign Co-Sign Detail Recorded Client Recorded Date Recorded By Document 10/26/19 12:04 EY [id number] 10/26/19 12:10 EY 10/26/19 12:04 Orthostatic Vitals Standing -Blood Pressure (90/60-120/80) 176/99 H -Extremity Use Left Arm -Pulse Rate (60-100) 73 Sitting -Blood Pressure (90/60-120/80) 165/80 H -Extremity Use Left Arm -Pulse Rate (60-100) 70 Lying -Blood Pressure (90/60-120/80) 162/80 H -Extremity Use Left Arm -Pulse Rate (60-100) 66 Intake and Output for Last 24 Hours 10/24/19 10/25/19 10/26/19 23:59 23:59 23:59 Intake Total 1298.33 / 1298.33 Balance 1298.33 / 1298.33 General: Alert, Oriented x3, Cooperative, No apparent distress HEENT: Atraumatic, PERRLA, EOMI, Normocephalic Oral: Moist Mucosa Neck: Supple, No JVD Lungs: Clear to auscultation, Normal air movement, No rhonchi, No wheeze, No rales Cardiovascular: Regular rate, Regular Rhythm, Normal S1, Normal S2, No murmurs Abdomen: Soft, Non Tender, Non-Distended, No Hepato-splenomegaly Extremities: No edema, Capillary Refill Less than 3 Seconds Skin: No rashes, No breakdown Neurological: Cranial nerves II-XII grossly intact, Deep Tendon Reflexes 2+/4 and Symmetrical, Motor Exam 5/5 strength throughout, - - Numbness in his left face and left upper extremity. No aphasia, no dysarthria and no signs of ataxia Psych/Mental Status: Normal Affect, Appropriate Laboratory Results 10/26/19 05:12: POC Glucose 165 H 10/26/19 05:15: WBC 8.0, RBC 5.20, Hgb 14.5, Hct 43.7, MCV 84.0, MCH 27.9, MCHC 33.2, RDW Std Deviation 39.6, RDW Coeff of Karen 12.9, Plt Count 186, MPV 11.0, Immature Gran % (Auto) 0.400, Neut % (Auto) 55.7, Lymph % (Auto) 27.5, [place] % (Auto) 11.6 H, Eos % (Auto) 4.0, Baso % (Auto) 0.8, Absolute Neuts (auto) 4.5, Absolute Lymphs (auto) 2.20, Nucleated RBC % 0 10/26/19 05:15: PT 14.2, INR 1.1, APTT 31.1 10/26/19 05:15: Sodium 139, Potassium 3.5, Chloride 103, Carbon Dioxide 30.0, Anion Gap 6, BUN 10, Creatinine 0.84, Estim Creat Clear Calc 98.36, Est GFR (MDRD) Af Amer 120, Est GFR (MDRD) Non-Af 99, BUN/Creatinine Ratio 12.0, Glucose 160 H, Calcium 8.7, Troponin I < 0.015 10/26/19 11:45: POC Glucose 216 H Current Medications Acetaminophen (Tylenol) 650 mg PO Q4H PRN PRN PRN Reason: Headache/Temp>99.6F Aspirin (Aspirin, Baby) 162 mg PO QHS [facility] Atorvastatin Calcium (Lipitor) 80 mg PO QHS [facility] Clopidogrel Bisulfate (Plavix) 75 mg PO DAILY [facility] Last Admin: 10/26/19 10:53 Dose: 75 mg Documented by: Enoxaparin Sodium (Lovenox) 40 mg SC DAILY [facility] Last Admin: 10/26/19 10:53 Dose: 40 mg Documented by: Glucagon () 1 mg IM .X1 PRN PRN Reason: Hypoglycemia Sodium Chloride () 1,000 mls @ 100 mls/hr IV .Q10H ONE Stop: 10/26/19 15:25 Last Infusion: 10/26/19 12:34 Dose: Infused Documented by: Sodium Chloride () 1,000 mls @ 100 mls/hr IV .Q10H [facility] Last Infusion: 10/26/19 14:09 Dose: 0 mls/hr Documented by: Sodium Chloride () 250 mls @ 15 mls/hr IV .[id number] PRN PRN Reason: Saline Flush Sodium Chloride () 250 mls @ 15 mls/hr IV .[id number] PRN PRN Reason: Additional IVPB Infusion Dextrose (Dextrose 10%-Water) 250 mls @ 999 mls/hr IV .Q16M PRN; Protocol PRN Reason: HYPOGLYCEMIA Insulin Glargine (Lantus (Bkc)) 52 units SC 1700 [facility] Insulin Glargine (Lantus (Bkc)) 56 units SC BREAKFAST [facility] Insulin Human Lispro (Humalog Kwikpen ([facility])) 0 unit SC ACHS [facility]; Protocol Last Admin: 10/26/19 12:34 Dose: Not Given Documented by: Labetalol HCl (Trandate) 10 mg IV Q10M PRN PRN Reason: MAINTAIN BP < 220/120 Stop: 10/27/19 07:50 Montelukast Sodium (Singulair) 10 mg PO DAILY [facility] Ondansetron HCl (Zofran) 4 mg IV Q8H PRN PRN PRN Reason: NAUSEA/VOMITING Pantoprazole Sodium (Protonix) 40 mg PO DAILY [facility] Sodium Chloride () 10 - 40 ml IV UD PRN PRN Reason: SALINE FLUSH Sucralfate (Carafate) 1 gm PO 1HR_ACHS [facility] Assessment/Plan All Active Problems (Last Updated 03/10/18 @ 17:22 by Do Taylor) Vertigo, central (Acute) Expressive aphasia (Acute) Left sided numbness (Acute) 1. Vertigo/left-sided numbness -Unsure of the etiology at the moment, he does have signs concerning for a stroke however his vertigo seems to be positional which is less likely to be related to a stroke -Continue with IV fluids -For the moment we will add Plavix to his aspirin regimen -Start him on Lipitor and obtain an echo as well as a lipid panel -We will perform NIH every 4 hr, most recent was a 1 for sensory -MRI of his brain as well as MRAs of his head and neck are pending -We will hold his blood pressure medications for now -his orthostatic vital signs were negative 2. DM 2 -We will continue with his home insulin regimen, place him on a diabetic diet -We will hold his metformin 3. HTN/HLD -Allow permissive hypertension in the setting of concern for stroke, will treat if greater than 210-220 -We will restart his blood pressure medications in the morning -We will transition him from pravastatin to Lipitor DVT: Lovenox Code Visit OBSV E&M: [id number] Initial observation care L3
[2019-10-26 16:46] LABS: Bedside Glucose 157 mg/dL (70-110)
[2019-10-26] MEDS: Sucralfate 1 GM Tablet PO ×2 (16:47→22:00)
[2019-10-26] MEDS: Atorvastatin Calcium 80 MG Tablet PO (22:00)
[2019-10-26] MEDS: Aspirin 81 MG TAB.CHEW 162 MG PO (22:00)
[2019-10-27] MEDS: 0.9% Normal Saline 1,000 ML 100 ML IV
[2019-10-27 00:17] LABS: Bedside Glucose 194 mg/dL (70-110)
[2019-10-27 03:00] VITALS: PULSE 58
[2019-10-27 04:00] VITALS: BP 163/80; PULSE 60; RESP 16; TEMP 36.7; O2SAT 94
[2019-10-27 06:38] LABS: Absolute Lymphocyte Count 1.48 X10^3/uL (0.83-4.51); Absolute Neutrophil Count 5.4 X10^3/uL (2.0-7.7); Basophil# 0.05 X10^3/uL; Basophil% 0.6 % (0-1); Eosinophil# 0.28 X10^3/uL; Eosinophils% 3.5 % (0-5); Hematocrit 40.4 % (40-54); Hemoglobin 13.2 g/dL (13.0-16.5); Lymphocyte # 1.48 X10^3/ul (4.0); Lymphocyte % 18.3 % (19-41); Mean Corp Hgb Conc 32.7 g/dL (32-36); Mean Corpuscular Hgb 27.9 pg (27.0-32.0); Mean Corpuscular Volume 85.4 fL (80-94); Mean Platelet Vol. 11.1 fl (6.2-12.0); Monocyte# 0.82 X10^3/uL; Monocyte% 10.1 % (0-10); NRBC Flagged by Analyzer 0 % (0-5); Neutrophil # 5.44 X10^3/uL (2.7-7.7); Neutrophil % 67.3 % (47-70); Platelet Count 158 K/mm3 (150-450); RBC Distribution Width CV 12.8 % (11.6-14.6); RBC Distribution Width SD 39.8 fl (35.1-43.9); Red Blood Count 4.73 M/mm3 (4.6-6.2); White Blood Count 8.1 K/mm3 (4.4-11.0)
[2019-10-27] MEDS: Sucralfate 1 GM Tablet PO ×2 (06:39→11:06)
[2019-10-27 06:46] LABS: Bedside Glucose 153 mg/dL (70-110)
[2019-10-27 07:00] VITALS: PULSE 61
[2019-10-27 07:27] LABS: Anion Gap 3 (5-15); BUN 9 mg/dL (7-18); BUN/Creat Ratio 11.7 RATIO (10-20); Calcium,Total 8.5 mg/dL (8.5-10.1); Chloride 111 mmol/L (98-107); Cholesterol 161 mg/dL (200); Creatinine, Serum 0.77 mg/dL (0.70-1.30); EST Glomerular Filtration Rate 109 mL/min (>60); Est Glom Filt Rate - Afr Amer 132 mL/min (>60); Glucose 154 mg/dL (74-106); High Density Lipoprotein 36 mg/dL; Potassium 3.9 mmol/L (3.5-5.1); Sodium Level 141 mmol/L (136-145); Triglycerides 202 mg/dL; Very Low Density Lipoprotein 40 mg/dL (5-40)
[2019-10-27 08:10] VITALS: BP 178/80; PULSE 66; RESP 12; TEMP 36.7; O2SAT 97
[2019-10-27] MEDS: Nebivolol HCl 10 MG Tablet 40 MG PO (08:11)
[2019-10-27] MEDS: hydroCHLOROthiazide 25 MG Tablet PO (08:11)
[2019-10-27] MEDS: Losartan Potassium 100 MG Tablet PO (08:11)
[2019-10-27] MEDS: Clopidogrel Bisulfate 75 MG Tablet PO (08:12)
[2019-10-27] MEDS: Montelukast 10 MG Tablet PO (08:12)
[2019-10-27] MEDS: amLODIPine 10 MG Tablet PO (08:12)
[2019-10-27] MEDS: Pantoprazole Sodium 40 MG Tablet PO (08:12)
[2019-10-27 10:13] VITALS: BP 173/82
--- NOTE | 2019-10-27 10:59 | DCINST_ITS ---
- Discharge Diagnoses Current Active Problems: Current Active and Chronic Problems (Last Updated 03/10/18 @ 17:22 by Do Taylor) Vertigo, central (Acute) Expressive aphasia (Acute) Left sided numbness (Acute) You will use the following diet at home:: Calorie/Carbohydrate Controlled (specify 1200, 1400, etc), Cardiac Your food should be the consistency of: Regular Your liquids should be the consistency of: Regular/Thin Discharge Activity: Return to Normal Activity Call your doctor if you observe: Fever of 101 or Higher, Shortness of breath, Dizziness, Fainting spells, Swelling in the ankles, Chest pain, Increased palpitations (irregular heartbeat) Allergies/Adverse Reactions: Allergies No Known Allergies Allergy (Unverified 10/26/19 05:08) Medications to take at Discharge amlodipine 10 mg tablet 10 mg PO QDAY 03/10/18 ascorbic acid (vitamin C) 1,000 mg tablet 1 g PO DAILY 03/10/18 aspirin 81 mg chewable tablet 2 tab PO QHS tab 03/10/18 cholecalciferol (vitamin D3) 25 mcg (1,000 unit) capsule 1,000 unit PO QDAY 03/10/18 cranberry extract 500 mg capsule 500 mg PO QDAY cap 03/10/18 gabapentin 100 mg capsule 600 mg PO QHS cap 03/10/18 liraglutide 0.6 mg/0.1 mL (18 mg/3 mL) subcutaneous pen injector 1.8 mg SC 1700 ml 03/10/18 mecobalamin (vitamin B12) 1,000 mcg disintegrating tablet,sublingual 1,000 mcg PO QDAY 03/10/18 metformin 750 mg tablet,extended release 24 hr 1,500 mg PO DAILY 03/10/18 rigqnscx-zni-xdzrj acid 300 mcg-lycopene 600 mcg-lutein 300 mcg tablet 1 tab PO QDAY 03/10/18 nebivolol 20 mg tablet 40 mg PO QDAY 03/10/18 omega-3 fatty acids 1,000 mg capsule 1,000 mg PO QDAY 03/10/18 pravastatin 40 mg tablet 40 mg PO QHS 03/10/18 valsartan 320 mg-hydrochlorothiazide 25 mg tablet 1 tab PO QDAY 03/10/18 Insulin Detemir [Levemir Flextouch] 52 unit SQ 1700 10/26/19 Insulin Detemir [Levemir Flextouch] 56 unit SQ BREAKFAST 10/26/19 Insulin Lispro [Humalog KwikPen] 8 units SQ 1700 10/26/19 Lansoprazole 30 mg PO DAILY 10/26/19 Meloxicam 15 mg PO DAILY 10/26/19 Montelukast [Singulair] 10 mg PO DAILY 10/26/19 Sucralfate 1 gm PO 4X/DAY 10/26/19 Zolpidem Tartrate [Zolpidem Tartrate ER] 12.5 mg PO QHS 10/26/19 Primary Care Physician: Ramona Kimbrough DO [Primary Care Provider] - Please follow up with your Primary Care Physician in: 3-5 days Test Results: Test results from this visit will be discussed in further detail at your follow- up appointment, if applicable.
--- NOTE | 2019-10-27 11:13 | PHA.DC.MR ---
Pharmacy Service has performed discharge medication reconciliation for this patient. Home Medications amlodipine 10 mg tablet 10 mg PO QDAY 03/10/18 ascorbic acid (vitamin C) 1,000 mg tablet 1 g PO DAILY 03/10/18 aspirin 81 mg chewable tablet 2 tab PO QHS tab 03/10/18 cholecalciferol (vitamin D3) 25 mcg (1,000 unit) capsule 1,000 unit PO QDAY 03/10/18 cranberry extract 500 mg capsule 500 mg PO QDAY cap 03/10/18 gabapentin 100 mg capsule 600 mg PO QHS cap 03/10/18 liraglutide 0.6 mg/0.1 mL (18 mg/3 mL) subcutaneous pen injector 1.8 mg SC 1700 ml 03/10/18 mecobalamin (vitamin B12) 1,000 mcg disintegrating tablet,sublingual 1,000 mcg PO QDAY 03/10/18 metformin 750 mg tablet,extended release 24 hr 1,500 mg PO DAILY 03/10/18 iohzptwl-cwl-ghunb acid 300 mcg-lycopene 600 mcg-lutein 300 mcg tablet 1 tab PO QDAY 03/10/18 nebivolol 20 mg tablet 40 mg PO QDAY 03/10/18 omega-3 fatty acids 1,000 mg capsule 1,000 mg PO QDAY 03/10/18 pravastatin 40 mg tablet 40 mg PO QHS 03/10/18 valsartan 320 mg-hydrochlorothiazide 25 mg tablet 1 tab PO QDAY 03/10/18 Insulin Detemir [Levemir Flextouch] 52 unit SQ 1700 10/26/19 Insulin Detemir [Levemir Flextouch] 56 unit SQ BREAKFAST 10/26/19 Insulin Lispro [Humalog KwikPen] 8 units SQ 1700 10/26/19 Lansoprazole 30 mg PO DAILY 10/26/19 Meloxicam 15 mg PO DAILY 10/26/19 Montelukast [Singulair] 10 mg PO DAILY 10/26/19 Sucralfate 1 gm PO 4X/DAY 10/26/19 Zolpidem Tartrate [Zolpidem Tartrate ER] 12.5 mg PO QHS 10/26/19 The patient's discharge medication list was reviewed for discrepancies and discrepancies were resolved.
[2019-10-27 11:15] LABS: Bedside Glucose 197 mg/dL (70-110)
--- NOTE | 2019-10-27 12:02 | CASEMGMT ---
SW did not complete a PHQ 9 as patient did not have a Stroke or TIA per physician. Tiffany DANIEL MSW
--- NOTE | 2019-10-27 12:37 | PCM.DC.SUM ---
Discharge Date and Diagnosis Date of Admission: 10/26/19 Date of Discharge: 10/27/19 - Secondary Discharge Diagnosis Chronic Problems (Last Updated 03/10/18 @ 17:22 by Do Taylor) Essential hypertension with goal blood pressure less than 130/80 (Chronic) Taking medications as directed. Educated on exercise, weight, diet and sodium use. Hyperlipidemia associated with type 2 diabetes mellitus (Chronic) Lipids at goal/ on medication and tolerating well. Diabetes type 2, uncontrolled (Chronic) Reviewed diet, carb counting, medications, BG monitoring and timing of. currently not checking in timely and consistent manner. Needs to check in pairs with carb counting and give me data to review and manage. Hospital Course and Treatment Imaging Results: CT Brain: IMPRESSION: No CT evidence of acute infarct or hemorrhage. If there is clinical concern for hyperacute ischemia that is not evident by CT, MRI should be considered if possible. MRI Brain: IMPRESSION: 1. Unremarkable brain MRI. No acute or focal findings. MRA Head: IMPRESSION: 1. Unremarkable [place] of [place] and proximal branches. MRA Neck: IMPRESSION: Normal bilateral cervical carotid and vertebral arteries. Echo: Interpretation Summary The study was technically difficult. Contrast injection was performed. Left ventricular systolic function is normal. The estimated ejection fraction is 65 %. Moderate concentric left ventricular hypertrophy. The left atrium is mildly enlarged. Anterior leaflet diffuse mitral valve thickening. Trivial mitral valve insufficiency. Trivial tricuspid valve insufficiency. Mild aortic stenosis. Trivial pulmonic valve insufficiency. Unable to estimate RV systolic pressure/pulmonary artery pressure due to technically difficult study. Diastolic function is indeterminate. Faintly positive agitated saline contrast study for a right to left interatrial shunt compatible with a small PFO versus small ASD. Consults: None Operations: None Procedures: 2-D Echocardiogram Summary of Care Provided: Per HPI: The patient is a 59 year old M with a PMH as below who presents with 2 weeks worth of intermittent dizziness and left-sided numbness. He says that the numbness in his face and in his arm started about 2 weeks ago around [place] time when the dizziness started as well. He says that the dizziness appears to get times positional in other words whenever he gets up from laying down or gets up from seated position. Though he states that it is so extreme that sometimes he has difficulty walking, he says that today presented because is the worst it ever been and he says that it felt like he has been on a 4-day binge even though he does not drink. In the ER his work-up was unremarkable with a normal CT scan, however he did receive a score of 3 on his NIH per the ER physician. He has had work-up for previous neck issues, he has bulging disks mostly on the left and on the right and he has had nerve conduction studies on the right indicating entrapment and possible carpal tunnel syndrome. He says that he is never had any numbness or weakness on the left until he developed the numbness over the last 2 weeks. No recent illnesses, denies fevers and chills. Hospital Course: 1. Vertigo with left-sided xbortkmi-60-inem-old male with a history of diabetes and hypertension presented with 2 weeks worth of intermittent vertigo that seemed positional as well as new onset left-sided numbness. He said that the numbness was in his lower half of his left face as well as his left arm and a little bit in his leg. He had both a CT of his brain and an MRI of his brain which were negative for stroke however we proceeded with MRAs of his head and neck as well which were also unremarkable. His blood pressure medications were held initially on admission to allow for permissive hypertension in the face of possible stroke, however as the MRIs were negative his blood pressure medications were restarted. While here in the hospital he was running high in the 160s to 170s so it is also important for him to follow-up with his primary care doctor in 3 to 5 days for outpatient monitoring of his hypertension and for any medication adjustments. On the day of discharge he states that all symptoms have resolved he is no longer dizzy and he has no numbness on the left side whatsoever. He denies any weakness and feels back to complete baseline. I discussed with him the need to follow-up and it if the symptoms recurred to come back to the hospital. He does need to follow-up with his primary care doctor for the finding on the echo of a possible small PFO/ASD, this does not seem to be of much clinical significance as flow did not seem to be very large through it based on echo however he may benefit from having a REGAN or even follow-up with a kinesiotherapist/neurologist as an outpatient. In the meantime I recommend that he continue with his aspirin and his pravastatin, and we also discussed that this could have been due to dehydration given his lack of p.o. intake and the fact that he feels better after IV fluids. This plan was discussed with him and he expressed understanding. 2. His other medical diagnoses were evaluated and his home medications were continued where appropriate - Physical Exam Vitals/I&O's: Vital Signs Temp Pulse Resp BP Pulse Ox 98.0 F 66 12 173/82 H 97 10/27/19 08:10 10/27/19 08:10 10/27/19 08:10 10/27/19 10:13 10/27/19 08:10 Oxygen Flow Rate (L/min) 2 Oxygen Delivery Method Room Air Weight: 227 lb 8.273 oz Body Mass Index (BMI) 31.7 Finger Stick Blood Glucose 165 Intake and Output for Last 24 Hours 10/25/19 10/26/19 10/27/19 23:59 23:59 23:59 Intake Total 2701.66 / 2701.66 896.67 / 896.67 Balance 2701.66 / 2701.66 896.67 / 896.67 General: Alert, Oriented x3, Cooperative, No apparent distress HEENT: Atraumatic, PERRLA, EOMI, Normocephalic Oral: Moist Mucosa Neck: Supple, No JVD Lungs: Clear to auscultation, Normal air movement, No rhonchi, No wheeze, No rales Cardiovascular: Regular rate, Regular Rhythm, Normal S1, Normal S2, No murmurs Abdomen: Soft, Non Tender, Non-Distended, No Hepato-splenomegaly Extremities: No edema, Capillary Refill Less than 3 Seconds Skin: No rashes, No breakdown Neurological: Cranial nerves II-XII grossly intact, Deep Tendon Reflexes 2+/4 and Symmetrical, Motor Exam 5/5 strength throughout, Sensory exam is grossly normal. No aphasia, no dysarthria and no signs of ataxia Psych/Mental Status: Normal Affect, Appropriate Laboratory Results 10/26/19 16:37: POC Glucose 157 H 10/26/19 21:56: POC Glucose 194 H 10/27/19 05:55: WBC 8.1, RBC 4.73, Hgb 13.2, Hct 40.4, MCV 85.4, MCH 27.9, MCHC 32.7, RDW Std Deviation 39.8, RDW Coeff of Karen 12.8, Plt Count 158, MPV 11.1, Immature Gran % (Auto) 0.200, Neut % (Auto) 67.3, Lymph % (Auto) 18.3 L, Pershing % (Auto) 10.1 H, Eos % (Auto) 3.5, Baso % (Auto) 0.6, Absolute Neuts (auto) 5.4, Absolute Lymphs (auto) 1.48, Nucleated RBC % 0 10/27/19 05:55: Sodium 141, Potassium 3.9, Chloride 111 H, Carbon Dioxide 27.0, Anion Gap 3 L, BUN 9, Creatinine 0.77, Estim Creat Clear Calc 107.30, Est GFR (MDRD) Af Amer 132, Est GFR (MDRD) Non-Af 109, BUN/Creatinine Ratio 11.7, Glucose 154 H, Calcium 8.5, Triglycerides 202 H, Cholesterol 161, LDL Cholesterol 85, VLDL Cholesterol 40, HDL Cholesterol 36 L 10/27/19 06:40: POC Glucose 153 H 10/27/19 11:05: POC Glucose 197 H Discharge Activity: Return to Normal Activity Call your doctor if you observe: Fever of 101 or Higher, Shortness of breath, Dizziness, Fainting spells, Swelling in the ankles, Chest pain, Increased palpitations (irregular heartbeat) Home Medications: Medications to take at Discharge amlodipine 10 mg tablet 10 mg PO QDAY 03/10/18 ascorbic acid (vitamin C) 1,000 mg tablet 1 g PO DAILY 03/10/18 aspirin 81 mg chewable tablet 2 tab PO QHS tab 03/10/18 cholecalciferol (vitamin D3) 25 mcg (1,000 unit) capsule 1,000 unit PO QDAY 03/10/18 cranberry extract 500 mg capsule 500 mg PO QDAY cap 03/10/18 gabapentin 100 mg capsule 600 mg PO QHS cap 03/10/18 liraglutide 0.6 mg/0.1 mL (18 mg/3 mL) subcutaneous pen injector 1.8 mg SC 1700 ml 03/10/18 mecobalamin (vitamin B12) 1,000 mcg disintegrating tablet,sublingual 1,000 mcg PO QDAY 03/10/18 metformin 750 mg tablet,extended release 24 hr 1,500 mg PO DAILY 03/10/18 pmuwbyfr-umx-rxlkx acid 300 mcg-lycopene 600 mcg-lutein 300 mcg tablet 1 tab PO QDAY 03/10/18 nebivolol 20 mg tablet 40 mg PO QDAY 03/10/18 omega-3 fatty acids 1,000 mg capsule 1,000 mg PO QDAY 03/10/18 pravastatin 40 mg tablet 40 mg PO QHS 03/10/18 valsartan 320 mg-hydrochlorothiazide 25 mg tablet 1 tab PO QDAY 03/10/18 Insulin Detemir [Levemir Flextouch] 52 unit SQ 1700 10/26/19 Insulin Detemir [Levemir Flextouch] 56 unit SQ BREAKFAST 10/26/19 Insulin Lispro [Humalog KwikPen] 8 units SQ 1700 10/26/19 Lansoprazole 30 mg PO DAILY 10/26/19 Meloxicam 15 mg PO DAILY 10/26/19 Montelukast [Singulair] 10 mg PO DAILY 10/26/19 Sucralfate 1 gm PO 4X/DAY 10/26/19 Zolpidem Tartrate [Zolpidem Tartrate ER] 12.5 mg PO QHS 10/26/19 Primary Care Physician: Ramona Kimbrough DO [Primary Care Provider] - Please follow up with your Primary Care Physician in: 3-5 days Disposition: Home Minutes spent on discharge:: 35 Patient Condition:: Stable Medical Necessity - Tobacco Use Smoking Status: Former smoker Tobacco Use: Cigarettes Meaningful Use Info Meaningful Use Diagnoses (Choose all that apply): None applicable Code Visit OBSV E&M: 94018 Observation care discharge
== END 2019-10-27 11:00 | disposition home or self-care (01) ==
LOC: ED 06:51 → PCU 07:26
PROVIDERS: Admitting Provider Family Medicine; Emergency Provider Emergency Medicine; Family Provider Family Medicine; PCP Family Medicine; Visit Provider Family Medicine
DX: H81.4 Vertigo of central origin (principal); R20.0 Anesthesia of skin; I10 Essential (primary) hypertension; E11.65 Type 2 diabetes mellitus with hyperglycemia; R47.01 Aphasia; K21.9 Gastro-esophageal reflux disease without esophagitis; I08.3 Combined rheumatic disorders of mitral, aortic and tricuspid valves; E78.5 Hyperlipidemia, unspecified; Z79.899 Other long term (current) drug therapy; Z79.4 Long term (current) use of insulin; Z87.891 Personal history of nicotine dependence
CPT/HCPCS: 36415; 70450; 70544; 70549; 70551; 80048; 80061; 82962; 84484; 85025; 85610; 85730; 92523; 92610; 93005; 93306; 94762; 96360; 96361; 96372; 97162; 97166; 97802; 99218; 99285; A9575; J7030; Q9957; A4216; C8929; G0378

== ENCOUNTER → 2020-05-02 | Outpatient (CLI) | payer OTHER, SELFPAY ==
[2019-10-26 07:55] VITALS: BMI 31.7
== END | disposition home or self-care (01) ==
LOC: LAB 17:49
PROVIDERS: PCP Family Medicine; Referring Provider Family Medicine; Visit Provider Family Medicine
DX: Z20.828 Contact with and (suspected) exposure to other viral communicable diseases (principal)
CPT/HCPCS: 87635; G2023; U0003

== ENCOUNTER 2020-09-11 08:26 | Day surgery (SDC) | payer OTHER, SELFPAY ==
[2020-08-28 14:23] VITALS: BMI 32.5
[2020-09-11 08:56] VITALS: BP 157/70; PULSE 60; RESP 16; TEMP 36.2; O2SAT 96; BMI 31.6
[2020-09-11 09:11] LABS: Bedside Glucose 205 mg/dL (70-110)
[2020-09-11] MEDS: Lactated Ringers 1,000 ML 100 ML IV (09:19)
--- NOTE | 2020-09-11 09:29 | HP.PCM_ITS ---
History and Physical Date of Admission: 09/11/20 Date of Service: 08/28/20 MR#: [id number] Acct: [id number] Name: SASHA AGUERO Rep #: [id number] : 1960 Provider: Dr. Eddie Yan MD Age/Sex: 60/M Location: [facility] Status: Signed Intake Vital Signs 08/28/20 Height 5 ft 11 in 08/28/20 Weight: 233 lb 08/28/20 BMI 32.5 08/28/20 BP 167/83 H 08/28/20 Blood Pressure Location Rt brachial 08/28/20 Position Sitting 08/28/20 Respiration 18 Intake Visit Reasons: Diarrhea X 24 MONTHS Chief Complaint: diarrhea Allergies ropinirole [From Requip] Allergy (Mild, Verified 08/28/20 14:12) PT UNSURE OF REACTION Medications amlodipine 10 mg tablet 10 mg PO QDAY 03/10/18 [History Confirmed 08/28/20] ascorbic acid (vitamin C) 1,000 mg tablet 1 g PO DAILY 03/10/18 [History Confirmed 08/28/20] aspirin 81 mg chewable tablet 2 tab PO QHS tab 03/10/18 [History Confirmed 08/28/20] cholecalciferol (vitamin D3) 25 mcg (1,000 unit) capsule 1,000 unit PO QDAY 03/10/18 [History Confirmed 08/28/20] cranberry extract 500 mg capsule 500 mg PO QDAY cap 03/10/18 [History Confirmed 08/28/20] gabapentin 100 mg capsule 600 mg PO QHS cap 03/10/18 [History Confirmed 08/28/20] liraglutide 0.6 mg/0.1 mL (18 mg/3 mL) subcutaneous pen injector 1.8 mg SC 1700 ml 03/10/18 [History Confirmed 08/28/20] metformin 750 mg tablet,extended release 24 hr 1,500 mg PO DAILY 03/10/18 [History Confirmed 08/28/20] svlccuzd-ngt-uzqnr acid 300 mcg-lycopene 600 mcg-lutein 300 mcg tablet 1 tab PO QDAY 03/10/18 [History Confirmed 08/28/20] nebivolol 20 mg tablet 40 mg PO QDAY 03/10/18 [History Confirmed 08/28/20] omega-3 fatty acids 1,000 mg capsule 1,000 mg PO QDAY 03/10/18 [History Confirmed 08/28/20] pravastatin 40 mg tablet 40 mg PO QHS 03/10/18 [History Confirmed 08/28/20] valsartan 320 mg-hydrochlorothiazide 25 mg tablet 1 tab PO QDAY 03/10/18 [History Confirmed 08/28/20] Lansoprazole 30 mg PO DAILY 10/26/19 [History Confirmed 08/28/20] insulin detemir U-100 100 unit/mL (3 mL) subcutaneous pen 58 unit SC 1700 ml 08/28/20 [History Confirmed 08/28/20] insulin detemir U-100 100 unit/mL (3 mL) subcutaneous pen 60 unit SC BREAKFAST ml 08/28/20 [History Confirmed 08/28/20] insulin lispro 100 unit/mL subcutaneous pen 10 unit SC 1700 ml 08/28/20 [History Confirmed 08/28/20] loratadine 10 mg tablet 10 mg PO DAILY 08/28/20 [History Confirmed 08/28/20] [facility] Medical History Vertigo, central (Acute) Expressive aphasia (Acute) Hyperlipidemia associated with type 2 diabetes mellitus (Chronic) Cataracts, bilateral (Acute) GERD (gastroesophageal reflux disease) (Acute) Hearing problem (Acute) High cholesterol (Acute) Stomach ulcer (Acute) Type 2 diabetes mellitus (Acute) HTN (hypertension) (Chronic) Surgical History S/P tonsillectomy (Acute) Family History Unknown Arthritis Breast cancer Cancer Diabetes Heart disease Hypertension Social History (Updated 08/29/20 @ 10:[address] Chantell Yan MD) Smoking Status: Former smoker substance use type: does not use HPI HPI HPI: SASHA AGUERO, is a 60 M who presents to the office today for HPI HPI HPI: SASHA AGUERO, is a 60 M who presents to the office today for colonoscopy due to loose stools after eating for the last 3 months. Patient has never had a previous colonoscopy. Patient states for the last 3 months after eating any types of food will have crampy abdominal pain and have to go to the bathroom 15 or 20 minutes later. Patient states this happens even after having normal bowel movements in the morning prior to eating. Patient denies any blood in his stool his stool or any family history of colon cancer. Patient also has a history of reflux his symptom has been burning up the esophagus patient is currently on lansoprazole 30 mg daily for the last 6 to 8 months which he denies any symptoms of reflux. Patient states that he has been on medication for many years had an EGD about 20 years ago. Patient also complains of right mid abdomen and right back/side abdominal pain rated at 7?8/10 it does improve after he goes to the bathroom. Patient states that he will notice it at night when he lays on that side. Patient denies any right-sided pain after eating. ROS General General: No weight change, fatigue, colon cancer, breast cancer or weakness HEENT HEENT: Yes eye injury and eye surgery; no difficulty swallowing, swollen glands or hoarseness Endo Endocrine: Yes diabetes mellitus; no thyroid disease, thyroid cancer, Hair loss, heat intolerance or cold intolerance Skin Skin: No rash or changing moles Breast Breast: No left breast lump, right breast lump, nipple discharge, breast pain, abnormal mammogram, abnormal US or breast enlargement Musc Musculoskeletal: Yes back problems; no arthritis, rheumatoid arthritis, gout or joint pain Cardio Cardiovascular: Yes high blood pressure; no pacemaker, heart disease, atrial fibrillation, heart attack, heart stent, palpitations, shortness of breat with exertion or chest pain Psych Psychiatric: No depression, anxiety or hearing voices Resp Respiratory: No shortness of breath, No sleep apnea, No cough, No COPD, Yes asthma, No emphysema, No wheezing Gastro Gastrointestinal: No abdominal pain, No nausea or vomiting, No diarrhea, No constipation, No blood in stool, Yes acid reflux, No hemorrhoids, No ulcers, No gallbladder problem, No black,tarry stools Carrillo Hematologic: No blood thinners, No blood disorders, No bleeding, No anemia, No blood clots Neuro Neurologic: No system reviewed and no additional complaints, except as docu, No as per HPI, No abnormal walking, No abnormal hearing, No abnormal movements, No abnormal speech, No behavioral changes, No burning sensations, No confusion, No seizure-like activity, No unsteadiness, No dizziness, No localized weakness, No frequent falls, No headache(s), No lack of coordination, No loss of vision, No memory loss, Yes numbness, No other visual disturbances, No radiating pain, No restless legs, No sensory deficit, No fainting, Yes tingling, No tremor(s), No weakness, No other Exam Const General: cooperative, comfortable, no acute distress, well developed Chest Breast Palpation: No nipple discharge Resp Effort & Inspection: normal respiratory effort Cardio Rhythm: regular rhythm GI Inspection: non-distended Palpation: soft, no guarding, tender (Right mid abdomen and right flank/back, mild, no peritoneal signs) Assessment & Plan Problems 1. Right sided abdominal pain R10.9 2. Change in bowel habits R19.4 3. Gastroesophageal reflux disease K21.9 Plan Unsure of exact etiology of patient's rates abdominal pain that does improve with bowel movement. Asked patient to pay attention with after the prep when he is cleaned out if he still has discomfort on that side. If nothing is identified for the right-sided pain patient may benefit from a CAT scan in the future. We will also plan random biopsies for the colonoscopy due to the change in bowel habits with frequent loose stools after eating. We will plan to do an EGD as patient has had 120 years ago and is been on medication for 10+ years. I have discussed the above with the patient. I have offered the patient EGD and colonoscopy for evaluation. I have explained the risks/benefits of the procedure and described the procedure. I have discussed the risks with the patient, including but not limited to: infection, bleeding, perforation of the GI tract requiring emergency surgery, inability to complete the procedure, injury to any internal organs, complications of anesthesia, etc. - the patient understands and agrees to proceed. I have answered all the patient's questions to the patient's satisfaction and the patient has no further questions. The patient has been given instructions for the colon cleansing preparation. 1 day of clears MiraLAX Dulcolax split prep Chantell Yan M.D. Pager: [phone] [facility] [address] [place] [address], [facility], [address] [place] [address] Office: [phone] Orders Orders: Colonoscopy 08/28/20 EGD 08/28/20 Plan Detail Follow Up We will schedule EGD and colonoscopy Coding Level of Care Code Off vis,new,level 3 Diagnoses Right sided abdominal pain R10.9 Change in bowel habits R19.4 Gastroesophageal reflux disease K21.9 COVID (Procedure Consent) Procedure Criteria Procedure Criteria: Yes Elective The surgeon/proceduralist and patient have discussed in detail the risk of exposure to and/or potential harm posed by the COVID-19 virus with having a surgery/procedure at this time versus the risk of? delaying the surgery/procedure. It is not possible to know either the risk of delaying the surgery or procedure or chance of getting an infection with perfect accuracy, but a joint decision was made between the patient and the surgeon/proceduralist ?to proceed at this time with the scheduled surgery/procedure as indicated on the consent form. 08/29/20 1025 <Electronically signed by Chantell Anderson am, MD> Date _ Chantell Yan MD
--- NOTE | 2020-09-11 09:45 | IMM_PTH ---
PATIENT: SASHA AGUERO LOC: EN U#:[id number] AGE/SX: 60/M ROOM: RE09/11/[address]: Dr. Chantell Yan MD : 1960 BED: DIS: 09/11/2020 SPEC #: [id number] RECD: 09/11/20 15:00 STATUS: MONY REQ #: [id number] [place]: 09/11/20 09:[address]: Chantell Yan DEPT: IMMUNOHISTOCHEMISTRY RECD BY: Kennedi Saba ENTERED: 09/11/20 15:00 SP TYPE: IMMUNO OTHR DR: Dr. Ramona Kimbrough, DO Tissues: A - Stomach, NOS Procedures: H Pylori (initial) [facility]YSICIAN [facility] INSTIT[facility] [address] [address] SPECIMEN INFORMATION: Tissue Source: A - Antrum biopsy Clinical Info: Right-sided abdominal pain; change in bowel habits; GERD Specimen Number: [id number] CPT code: 54446 METHODOLOGY: Deparaffinized sections of prefer/formalin-fixed tissue or PAP/DQ stained slides are incubated with monoclonal/polyclonal antibodies/oligonucleotide probes. Localization is made via biotin free immunoperoxidase method. Appropriate controls are performed and reacted as expected. Results on target cell population are indicated in the following table: RESULTS: ANTIBODY / CLONE RESULT Block A H Pylori (polyclonal) negative These tests were developed and their performance characteristics determined by [facility]. They may not have been cleared or approved by the U.S. Food and Drug Administration. The FDA has determined that such clearance or approval is not necessary. INTERPRETATION: A. Antrum biopsy: Negative for Helicobacter pylori organisms. AM:brian 09/12/20
--- NOTE | 2020-09-11 09:45 | EGD_PTH ---
PATIENT: SASHA AGUERO LOC: EN U#:[id number] AGE/SX: 60/M ROOM: RE09/11/[address]: Dr. Chantell Yan MD : 1960 BED: DIS: 09/11/2020 SPEC #: [id number] RECD: 09/11/20 13:19 STATUS: MONY RE #: [id number] [place]: 09/11/20 09:[address]: Chantell Yan DEPT: SURGICAL PATHOLOGY RECD BY: Jade Tellez ENTERED: 09/11/20 13:56 SP TYPE: EGD BIOPSY OT DR: Dr. Ramona Kimbrough, DO Tissues: A - Gastric mucous membrane B - Gastric mucous membrane C - Gastric mucous membrane D - Ascending colon E - Transverse colon F - Descending colon G - Sigmoid colon biopsy H - Sigmoid colon biopsy I - Rectum, NOS Procedures: Special Stain Group II Surgery Specimen Level IV Alcian Blue/PAS (control) HEADER OPERATION: [place] [place] DIAGNOSIS: Right-sided abdominal pain; change in bowel habits; GERD TISSUE SUBMITTED: A - Antrum biopsy for H. pylori and path, B - Biopsy of gastric body, C - GE junction biopsy, D - Ascending colon biopsies, E - Transverse colon biopsies, F - Descending colon biopsy, G - Sigmoid colon biopsy, H - Sigmoid polyp 25 cm, I - Rectum biopsy MICROSCOPIC DIAGNOSIS A. Gastric antrum, biopsy: Chronic gastritis. Intestinal metaplasia present. No evidence of dysplasia. See comment. B. Gastric body, biopsy: Mild chronic inflammation. C. Gastroesophageal junction, biopsy: Fragments of gastric mucosa with mild chronic inflammation. No evidence of goblet cell metaplasia. See comment. D. Ascending colon, biopsy: No pathologic change. E. Transverse colon, biopsy: No pathologic change. F. Descending colon, biopsy: No pathologic change. G. Sigmoid colon, biopsy: No pathologic change. H. Sigmoid colon polyp at 25 cm, biopsy: Tubular adenoma with multifocal high grade dysplasia. See comment. I. Rectum, biopsy: No pathologic change. AM:brian 09/12/20 COMMENT A. The results of immunohistochemistry for Helicobacter pylori will be reported separately ([id number]). Alcian blue/PAS stain with matched control supports the above diagnosis. C. Alcian blue/PAS stain with matched control supports the above diagnosis. H. High grade dysplasia is not noted at the cauterized area of the polyp. MICROSCOPIC DESCRIPTION Slides are reviewed. GROSS DESCRIPTION A - Received in fixative is one container labeled with the patient's name and designated antrum biopsy. The specimen consists of one irregular fragment of light snyder soft tissue that measures 0.5 x 0.3 x 0.1 cm. The specimen is totally submitted in one cassette. B - Received in fixative is one container labeled with the patient's name and designated gastric body biopsy. The specimen consists of one irregular fragment of light snyder soft tissue that measures 1 x 0.3 x 0.1 cm. The specimen is totally submitted in one cassette. C - Received in fixative is one container labeled with the patient's name and designated GE junction biopsy. The specimen consists of multiple irregular fragments of light snyder soft tissue that in aggregate measure 0.5 x 0.3 x 0.1 cm. The specimen is totally submitted in one cassette. D - Received in fixative is one container labeled with the patient's name and designated ascending colon biopsy. The specimen consists of two irregular fragments of light snyder soft tissue that in aggregate measure 0.7 x 0.6 x 0.1 cm. The specimen is totally submitted in one cassette. E - Received in fixative is one container labeled with the patient's name and designated transverse colon biopsy. The specimen consists of two irregular fragments of light snyder soft tissue that in aggregate measure 0.6 x 0.5 x 0.1 cm. The specimen is totally submitted in one cassette. F - Received in fixative is one container labeled with the patient's name and designated descending colon biopsy. The specimen consists of one irregular fragment of light snyder soft tissue that measures 0.2 x 0.2 x 0.1 cm. The specimen is totally submitted in one cassette. G - Received in fixative is one container labeled with the patient's name and designated sigmoid colon biopsy. The specimen consists of two irregular fragments of light snyder soft tissue that in aggregate measure 0.6 x 0.3 x 0.1 cm. The specimen is totally submitted in one cassette. H - Received in fixative is one container labeled with the patient's name and designated sigmoid polyp 25 cm. The specimen consists of a polypoid fragment of snyder tissue measuring 1.3 x 1.2 x 1 cm. The fragment is inked, trisected and totally submitted in one cassette. I - Received in fixative is one container labeled with the patient's name and designated rectum biopsy. The specimen consists of one irregular fragment of light snyder soft tissue that measures 0.6 x 0.2 x 0.1 cm. The specimen is totally submitted in one cassette. / AM:brian 09/11/20 TC:? CPT: 70300 x9, 54480 x2
[2020-09-11 10:32] VITALS: BP 109/59; BP 157/70; PULSE 77; RESP 16; TEMP 36.6; O2SAT 94
--- NOTE | 2020-09-11 10:32 | OP.EGD_ITS ---
Patient Name: Hilary Butt Procedure Date: 09/11/2020 9:40 AM Date of : 1960 Age: 60 Procedure: Upper GI endoscopy Indications: Abdominal pain in the right upper quadrant, Follow-up of gastro-esophageal reflux disease Providers: Chantell Yan MD Referring MD: Ramona Kimbrough Medicines: Monitored Anesthesia Care Patient Profile: This is a 60 year old male. Complications: No immediate complications. Procedure: Pre-Anesthesia Assessment: - Prior to the procedure, a History and Physical was performed, and patient medications and allergies were reviewed. The patient's tolerance of previous anesthesia was also reviewed. The risks and benefits of the procedure and the sedation options and risks were discussed with the patient. All questions were answered, and informed consent was obtained. Prior Anticoagulants: The patient has taken no previous anticoagulant or antiplatelet agents. ASA Grade Assessment: Per anesthesia. After reviewing the risks and benefits, the patient was deemed in satisfactory condition to undergo the procedure. After obtaining informed consent, the endoscope was passed under direct vision. Throughout the procedure, the patient's blood pressure, pulse, and oxygen saturations were monitored continuously. The Endoscope was introduced through the mouth, and advanced to the second part of duodenum. The upper GI endoscopy was accomplished without difficulty. The patient tolerated the procedure well. Scope In: 9:48:09 AM Scope Out: 9:56:11 AM Total Procedure Duration Time 0 hours 8 minutes 2 seconds Findings: The Z-line was irregular and was found 40 cm from the incisors. Biopsies were taken with a cold forceps for histology. The examined duodenum was normal. The cardia and gastric fundus were normal on retroflexion. Mildly erythematous mucosa without bleeding was found in the gastric antrum. Biopsies were taken with a cold forceps for histology. Biopsies were taken with a cold forceps for Helicobacter pylori cultures. Mildly erythematous mucosa with minimal bleeding was found in the gastric body--unsure etiology saw prior to scope passing this area, so don't think it was due to trauma. Biopsies were taken with a cold forceps for histology. Impression: - Z-line irregular, 40 cm from the incisors. Biopsied. - Normal examined duodenum. - Erythematous mucosa in the antrum. Biopsied. - Erythematous mucosa in the gastric body. Biopsied. Recommendation: - Await pathology results. - Discharge patient to home. - Resume previous diet. - Continue present medications. Procedure Code(s): --- Professional --- 21114, Esophagogastroduodenoscopy, flexible, transoral; with biopsy, single or multiple Diagnosis Code(s): --- Professional --- K22.8, Other specified diseases of esophagus K31.89, Other diseases of stomach and duodenum R10.11, Right upper quadrant pain K21.9, Gastro-esophageal reflux disease without esophagitis CPT copyright 2017 [employer]. All rights reserved. The codes documented in this report are preliminary and upon cryptologic technician technical review may be revised to meet current compliance requirements. MD Chantell Graves MD 09/11/2020 10:32:30 AM This report has been signed electronically. Number of Addenda: 0 Note Initiated On: 09/11/2020 9:40 AM
--- NOTE | 2020-09-11 10:33 | OP.CCLET_ITS ---
09/11/2020 Ramona Kimbrough [address] [facility] [place] [address] Re : Upper GI endoscopy procedure for Hilary Butt Dear Dr. Kimbrough This procedure was performed on Friday, September 11, 2020. My impressions and recommendations are as follows: Impressions : - Z-line irregular, 40 cm from the incisors. Biopsied. - Normal examined duodenum. - Erythematous mucosa in the antrum. Biopsied. - Erythematous mucosa in the gastric body. Biopsied. Recommendations : - Await pathology results. - Discharge patient to home. - Resume previous diet. - Continue present medications. My findings are described in the full procedure note, which is enclosed. If I can be of further assistance, please feel free to contact me at Doctor phone number(s): , Work: . Sincerely, MD Chantell Graves MD 09/11/2020 10:32:30 AM This report has been signed electronically.
--- NOTE | 2020-09-11 10:36 | OP.COLON_ITS ---
Patient Name: Hilary Butt Procedure Date: 09/11/2020 9:57 AM Date of : 1960 Age: 60 Procedure: Colonoscopy Indications: Change in bowel habits Providers: Chantell Yan MD Referring MD: Ramona Kimbrough Medicines: Monitored Anesthesia Care Patient Profile: This is a 60 year old male. Last Colonoscopy: none. The patient's first colonoscopy is today. Complications: No immediate complications. Procedure: Pre-Anesthesia Assessment: - Prior to the procedure, a History and Physical was performed, and patient medications and allergies were reviewed. The patient's tolerance of previous anesthesia was also reviewed. The risks and benefits of the procedure and the sedation options and risks were discussed with the patient. All questions were answered, and informed consent was obtained. Prior Anticoagulants: The patient has taken no previous anticoagulant or antiplatelet agents. ASA Grade Assessment: Per anesthesia. After reviewing the risks and benefits, the patient was deemed in satisfactory condition to undergo the procedure. After I obtained informed consent, the scope was passed under direct vision. Throughout the procedure, the patient's blood pressure, pulse, and oxygen saturations were monitored continuously. The pediatric colonoscope was introduced through the anus and advanced to the cecum, identified by the appendiceal orifice, ileocecal valve and palpation. The colonoscopy was performed without difficulty. The patient tolerated the procedure well. The quality of the bowel preparation was good. Scope In: 9:58:48 AM Scope Withdrawal Time 0 hours 20 minutes 52 seconds Scope Out: 10:25:52 AM Total Procedure Duration Time 0 hours 27 minutes 4 seconds Findings: A 13 mm polyp was found in the distal sigmoid colon. The polyp was pedunculated. The polyp was removed with a hot snare. Resection and retrieval were complete. A few small-mouthed diverticula were found in the sigmoid colon. Five random biopsies were obtained with cold forceps for histology in a targeted manner in the rectum, in the sigmoid colon, in the descending colon, in the transverse colon and in the ascending colon. The exam was otherwise without abnormality on direct and retroflexion views. The perianal and digital rectal examinations were normal. Impression: - One 13 mm polyp in the distal sigmoid colon, removed with a hot snare. Resected and retrieved. - Diverticulosis in the sigmoid colon. - The examination was otherwise normal on direct and retroflexion views. - Five random biopsies were obtained in the rectum, in the sigmoid colon, in the descending colon, in the transverse colon and in the ascending colon. Recommendation: - Discharge patient to home. - High fiber diet. - Continue present medications. - Await pathology results. - Repeat colonoscopy in 3 - 5 years for surveillance based on pathology results. Procedure Code(s): --- Professional --- 24401, Colonoscopy, flexible; with removal of tumor(s), polyp(s), or other lesion(s) by snare technique 34126, 59, Colonoscopy, flexible; with biopsy, single or multiple Diagnosis Code(s): --- Professional --- D12.5, Benign neoplasm of sigmoid colon R19.4, Change in bowel habit K57.30, Diverticulosis of large intestine without perforation or abscess without bleeding CPT copyright 2017 [employer]. All rights reserved. The codes documented in this report are preliminary and upon environmental field team member review may be revised to meet current compliance requirements. MD Chantell Graves MD 09/11/2020 10:36:40 AM This report has been signed electronically. Number of Addenda: 0 Note Initiated On: 09/11/2020 9:57 AM
--- NOTE | 2020-09-11 10:37 | OP.CCLET_ITS ---
09/11/2020 Ramona Kimbrough [address] [place] [address] Re : Colonoscopy procedure for Hilary Butt Dear Dr. Kimbrough This procedure was performed on Friday, September 11, 2020. My impressions and recommendations are as follows: Impressions : - One 13 mm polyp in the distal sigmoid colon, removed with a hot snare. Resected and retrieved. - Diverticulosis in the sigmoid colon. - The examination was otherwise normal on direct and retroflexion views. - Five random biopsies were obtained in the rectum, in the sigmoid colon, in the descending colon, in the transverse colon and in the ascending colon. Recommendations : - Discharge patient to home. - High fiber diet. - Continue present medications. - Await pathology results. - Repeat colonoscopy in 3 - 5 years for surveillance based on pathology results. My findings are described in the full procedure note, which is enclosed. If I can be of further assistance, please feel free to contact me at Doctor phone number(s): , Work: . Sincerely, MD Chantell Graves MD 09/11/2020 10:36:40 AM This report has been signed electronically.
[2020-09-11 10:40] VITALS: BP 113/60; BP 157/70; PULSE 67; RESP 16; O2SAT 96
[2020-09-11 10:45] VITALS: BP 157/70; BP 96/59; PULSE 81; RESP 16; O2SAT 93
[2020-09-11 10:50] VITALS: BP 157/70; BP 99/64; PULSE 75; RESP 16; TEMP 36.6; O2SAT 93
[2020-09-11 11:18] VITALS: BP 157/70
== END 2020-09-11 11:23 | disposition home or self-care (01) ==
LOC: EN 08:26 → AC 08:33
PROVIDERS: PCP Family Medicine; Referring Provider Family Medicine; Visit Provider Surgery
PROC: 0DJD8ZZ Inspection of Lower Intestinal Tract, Via Natural or Artificial Opening Endoscopic (ICD-10-PCS; CPT 45378; principal; 2020-09-11 09:40)
DX: K29.50 Unspecified chronic gastritis without bleeding (principal); K57.30 Diverticulosis of large intestine without perforation or abscess without bleeding; D12.5 Benign neoplasm of sigmoid colon; I10 Essential (primary) hypertension; G25.81 Restless legs syndrome; E11.9 Type 2 diabetes mellitus without complications; K21.9 Gastro-esophageal reflux disease without esophagitis; E78.00 Pure hypercholesterolemia, unspecified; Z87.19 Personal history of other diseases of the digestive system; Z79.4 Long term (current) use of insulin; Z79.82 Long term (current) use of aspirin; Z79.899 Other long term (current) drug therapy; Z87.891 Personal history of nicotine dependence
CPT/HCPCS: 43239; 45380; 45385; 82962; 87426; 88305; 88313; 88342; C9803; J7120; J2405

== ENCOUNTER 2021-01-04 10:09 | Outpatient (RCR) | payer OTHER, SELFPAY ==
[2021-01-04] MEDS: COVID-19 VACC, MRNA(PFIZER)/PF 30 MCG/0.3 ML SYRINGE IM (07:03)
[2021-01-25] MEDS: COVID-19 VACC, MRNA(PFIZER)/PF 30 MCG/0.3 ML SYRINGE IM (06:58)
== END 2021-01-04 23:59 ==
LOC: IMMUN 10:09
PROVIDERS: PCP Family Medicine; Visit Provider Family Medicine
DX: Z23 Encounter for immunization (principal)
CPT/HCPCS: 0001A; 0002A; 91300